=== PATIENT | female | born 1965 | race Caucasian/White ===

== ENCOUNTER 2018-12-01 13:12 | Observation (INO) ==
[2018-12-01 08:25] LABS: Basophils # 0.1 K/mcL (0.0-0.2); Basophils % 2.6 %; Eosinophils % 0.7 %; Hematocrit 34.3 % (35.3-44.9); Hemoglobin 11.5 g/dL (11.5-15.4); Immature Granulocytes % 0.9 % (0-4); Lymphocytes # 0.8 K/mcL (0.6-4.6); Lymphocytes % 18.7 %; Mean Corpuscular HGB Conc 33.5 g/dL (31.6-35.5); Mean Corpuscular Hemoglobin 27.1 pg (28.0-33.3); Mean Corpuscular Volume 80.9 fL (83.0-100.0); Mean Platelet Volume 8.6 fL (9.4-12.4); Monocytes # 0.6 K/mcL (0.0-1.3); Neutrophils # 2.7 K/mcL (1.6-8.9); Platelet Count 234 K/mcL (140-400); Red Blood Count 4.24 M/mcL (3.82-4.97); Red Cell Distribution Width 15.4 % (11.5-14.5); Segmented Neutrophils % 64.1 %; White Blood Count 4.2 K/mcL (4.3-11.1)
[2018-12-01 08:42] LABS: Alanine Aminotransferase 13 Units/L (7-52); Albumin 3.9 g/dL (3.5-5.7); Albumin/Globulin Ratio 1.8 (1.1-2.2); Alkaline Phosphatase 100 Units/L (34-104); Aspartate Amino Transferase 9 Units/L (13-39); BUN/Creatinine Ratio 19 (6-26); Bilirubin,Total 0.5 mg/dL (0.3-1.0); Blood Urea Nitrogen 13 mg/dL (6-20); Calcium 9.4 mg/dL (8.6-10.3); Carbon Dioxide 26 mEq/L (23-29); Chloride 103 mEq/L (98-107); Globulin 2.2 g/dL (2.4-3.5); Glucose 120 mg/dL (70-105); Lactate Dehydrogenase 123 Units/L (140-271); Magnesium 1.8 mg/dL (1.6-2.6); Osmolality,Calculated 289 (280-300); Phosphorous 3.9 mg/dL (2.7-4.5); Potassium 3.5 mEq/L (3.5-5.1); Sodium 139 mEq/L (136-145); Total Protein 6.1 g/dL (6.4-8.9); Uric Acid 5.3 mg/dL (2.3-7.6); eGFR For African Americans > 60 (> 60); eGFR For Non-African Americans > 60 (> 60)
[2018-12-01 08:45] LABS: INR 1.1; Prothrombin Time 12.4 Seconds (9.4-12.1)
[2018-12-01] MEDS: predniSONE 10 MG TABLET PO SCH (09:14)
[2018-12-01] MEDS: 0.9 % Sodium Chloride 1,000 ML IVC SCH ×2 (09:42→17:21)
[~2018-12-01 13:12] MED LIST: *HR* Dextrose 50 % in Water (Syg) 50 ML SYRINGE IVP PRN; *HR* LORazepam 2 MG/ML VIAL IVP PRN; *HR* Promethazine 25 MG/ML VIAL IVP PRN; 0.9 % Sodium Chloride 500 ML IVC SCH; 0.9 % Sodium Chloride 500 ML IVPB ONE; Acetaminophen 325 MG TABLET PO SCH; D5% in Water 1,000 ML IVC PRN; Dexamethasone 10 MG/ML VIAL IVP PRN; Dextrose Gel 15 GM/37.5 ML TUBE PO PRN; Famotidine 20 MG/2 ML VIAL IVP PRN; Fosaprepitant Dimeglumine 150 MG in 0.9 % Sodium Chloride 250 ML IVPB SCH; Naloxone 0.4 MG/ML INJ IVP PRN; Prochlorperazine 10 MG/2 ML VIAL IVP PRN; RITUXIMAB IV SCH; SODIUM CHLORIDE 0.9% IV SCH
[2018-12-01] MEDS ORDERED: DOXORUBICIN HCL IVP SCH (14:00)
[2018-12-01] MEDS ORDERED: VINCRISTINE IVP SCH (14:00)
[2018-12-01] MEDS ORDERED: ETOPOSIDE IVP SCH (14:00)
[2018-12-01] MEDS ORDERED: [UNRECOGNIZED DRUG - OTHER] IVP SCH (14:00)
[2018-12-01] MEDS: Morphine Sulfate ER (12 HR) 15 MG TABLET.ER PO SCH (17:22)
[2018-12-01] MEDS: Ondansetron 4 MG/2 ML VIAL IVP PRN (17:22)
[2018-12-01] MEDS: Insulin LISPRO 300 UNITS/3 ML VIAL SQ SCH ×2 (17:23→20:45)
[2018-12-01 20:17] LABS: Basophils % 0.6 %; Hematocrit 31.5 % (35.3-44.9); Hemoglobin 10.9 g/dL (11.5-15.4); Immature Granulocytes % 1.5 % (0-4); Lymphocytes # 0.2 K/mcL (0.6-4.6); Lymphocytes % 4.9 %; Mean Corpuscular HGB Conc 34.6 g/dL (31.6-35.5); Mean Corpuscular Hemoglobin 27.7 pg (28.0-33.3); Mean Corpuscular Volume 80.2 fL (83.0-100.0); Mean Platelet Volume 8.8 fL (9.4-12.4); Monocytes % 0.6 %; Neutrophils # 4.3 K/mcL (1.6-8.9); Platelet Count 203 K/mcL (140-400); Red Blood Count 3.93 M/mcL (3.82-4.97); Red Cell Distribution Width 15.3 % (11.5-14.5); Segmented Neutrophils % 92.4 %; White Blood Count 4.7 K/mcL (4.3-11.1)
[2018-12-01 20:23] LABS: INR 1.2; Prothrombin Time 13.1 Seconds (9.4-12.1)
[2018-12-01 20:35] LABS: Alanine Aminotransferase 13 Units/L (7-52); Albumin/Globulin Ratio 2.1 (1.1-2.2); Alkaline Phosphatase 99 Units/L (34-104); Aspartate Amino Transferase 10 Units/L (13-39); BUN/Creatinine Ratio 25 (6-26); Bilirubin,Total 0.5 mg/dL (0.3-1.0); Blood Urea Nitrogen 14 mg/dL (6-20); Calcium 9.1 mg/dL (8.6-10.3); Carbon Dioxide 24 mEq/L (23-29); Chloride 106 mEq/L (98-107); Globulin 1.9 g/dL (2.4-3.5); Glucose 194 mg/dL (70-105); Lactate Dehydrogenase 121 Units/L (140-271); Magnesium 1.8 mg/dL (1.6-2.6); Osmolality,Calculated 294 (280-300); Phosphorous 3.4 mg/dL (2.7-4.5); Potassium 4.1 mEq/L (3.5-5.1); Sodium 139 mEq/L (136-145); Total Protein 5.9 g/dL (6.4-8.9); Uric Acid 4.8 mg/dL (2.3-7.6); eGFR For African Americans > 60 (> 60); eGFR For Non-African Americans > 60 (> 60)
[2018-12-02] MEDS ORDERED: *HR* LORazepam 2 MG/ML VIAL IVP PRN
[2018-12-02] MEDS ORDERED: predniSONE 20 MG TABLET PO SCH
[2018-12-02] MEDS ORDERED: Famotidine 20 MG/2 ML VIAL IVP PRN
[2018-12-02] MEDS ORDERED: *HR* Promethazine 25 MG/ML VIAL IVP PRN
[2018-12-02] MEDS ORDERED: Dexamethasone 10 MG/ML VIAL IVP PRN
[2018-12-02] MEDS ORDERED: Prochlorperazine 10 MG/2 ML VIAL IVP PRN
[2018-12-02] MEDS: *HR* OxyCODONE Immed Rel 5 MG TABLET PO PRN (02:47)
[2018-12-02] MEDS: 0.9 % Sodium Chloride 1,000 ML IVC SCH ×3 (02:48→22:00)
[2018-12-02] MEDS: Morphine Sulfate ER (12 HR) 15 MG TABLET.ER PO SCH ×2 (06:36→20:04)
[2018-12-02] MEDS: Acyclovir 200 MG CAPSULE PO SCH ×4 (07:26→21:32)
[2018-12-02] MEDS: *HR* Enoxaparin 40 MG/0.4 ML SYRINGE SQ SCH ×2 (07:26→08:17)
[2018-12-02] MEDS: Fluconazole 100 MG TABLET PO SCH ×2 (07:27→08:16)
[2018-12-02] MEDS: Insulin LISPRO 300 UNITS/3 ML VIAL SQ SCH ×3 (07:28→22:11)
[2018-12-02 08:08] LABS: Basophils % 0.1 %; Hematocrit 30.1 % (35.3-44.9); Hemoglobin 9.8 g/dL (11.5-15.4); Immature Granulocytes % 1.5 % (0-4); Lymphocytes # 0.5 K/mcL (0.6-4.6); Lymphocytes % 5.6 %; Mean Corpuscular HGB Conc 32.6 g/dL (31.6-35.5); Mean Corpuscular Hemoglobin 27.3 pg (28.0-33.3); Mean Corpuscular Volume 83.8 fL (83.0-100.0); Mean Platelet Volume 8.7 fL (9.4-12.4); Monocytes # 0.7 K/mcL (0.0-1.3); Monocytes % 7.6 %; Neutrophils # 7.5 K/mcL (1.6-8.9); Platelet Count 188 K/mcL (140-400); Red Blood Count 3.59 M/mcL (3.82-4.97); Red Cell Distribution Width 15.5 % (11.5-14.5); Segmented Neutrophils % 85.2 %
[2018-12-02 08:14] LABS: INR 1.1; Prothrombin Time 12.5 Seconds (9.4-12.1)
[2018-12-02 08:23] LABS: White Blood Count 8.8 K/mcL (4.3-11.1)
[2018-12-02 08:28] LABS: Alanine Aminotransferase 12 Units/L (7-52); Albumin 3.7 g/dL (3.5-5.7); Albumin/Globulin Ratio 1.9 (1.1-2.2); Alkaline Phosphatase 91 Units/L (34-104); Aspartate Amino Transferase 10 Units/L (13-39); BUN/Creatinine Ratio 27 (6-26); Bilirubin,Total 0.4 mg/dL (0.3-1.0); Blood Urea Nitrogen 14 mg/dL (6-20); Carbon Dioxide 23 mEq/L (23-29); Chloride 106 mEq/L (98-107); Globulin 1.9 g/dL (2.4-3.5); Glucose 119 mg/dL (70-105); Lactate Dehydrogenase 117 Units/L (140-271); Magnesium 1.8 mg/dL (1.6-2.6); Osmolality,Calculated 288 (280-300); Phosphorous 3.2 mg/dL (2.7-4.5); Potassium 3.9 mEq/L (3.5-5.1); Sodium 138 mEq/L (136-145); Total Protein 5.6 g/dL (6.4-8.9); eGFR For African Americans > 60 (> 60); eGFR For Non-African Americans > 60 (> 60)
[2018-12-02] MEDS: predniSONE 10 MG TABLET PO SCH (13:05)
[2018-12-02] MEDS ORDERED: VINCRISTINE IVP SCH (14:00)
[2018-12-02] MEDS ORDERED: ETOPOSIDE IVP SCH (14:00)
[2018-12-02] MEDS ORDERED: [UNRECOGNIZED DRUG - OTHER] IVPB SCH (14:00)
[2018-12-02] MEDS ORDERED: [UNRECOGNIZED DRUG - OTHER] IVP SCH (14:00)
[2018-12-02] MEDS ORDERED: ETOPOSIDE IVPB SCH (14:00)
[2018-12-02] MEDS ORDERED: DOXORUBICIN HCL IVP SCH (14:00)
[2018-12-02] MEDS ORDERED: VINCRISTINE IVPB SCH (14:00)
[2018-12-02] MEDS ORDERED: DOXORUBICIN HCL IVPB SCH (14:00)
[2018-12-02] MEDS: Ondansetron 4 MG/2 ML VIAL IVP PRN (20:04)
[2018-12-02 20:42] LABS: Basophils % 0.4 %; Hematocrit 29.9 % (35.3-44.9); Hemoglobin 10.2 g/dL (11.5-15.4); Immature Granulocytes % 1.1 % (0-4); Lymphocytes # 0.3 K/mcL (0.6-4.6); Lymphocytes % 3.8 %; Mean Corpuscular HGB Conc 34.1 g/dL (31.6-35.5); Mean Corpuscular Volume 82.1 fL (83.0-100.0); Mean Platelet Volume 9.3 fL (9.4-12.4); Monocytes # 0.1 K/mcL (0.0-1.3); Monocytes % 1.3 %; Neutrophils # 6.6 K/mcL (1.6-8.9); Platelet Count 183 K/mcL (140-400); Red Blood Count 3.64 M/mcL (3.82-4.97); Red Cell Distribution Width 15.9 % (11.5-14.5); Segmented Neutrophils % 93.4 %
[2018-12-02 20:54] LABS: INR 1.1; Prothrombin Time 12.2 Seconds (9.4-12.1)
[2018-12-02 20:59] LABS: Alanine Aminotransferase 11 Units/L (7-52); Albumin 3.8 g/dL (3.5-5.7); Albumin/Globulin Ratio 2.2 (1.1-2.2); Alkaline Phosphatase 85 Units/L (34-104); Aspartate Amino Transferase 9 Units/L (13-39); BUN/Creatinine Ratio 23 (6-26); Bilirubin,Total 0.3 mg/dL (0.3-1.0); Blood Urea Nitrogen 14 mg/dL (6-20); Calcium 8.9 mg/dL (8.6-10.3); Carbon Dioxide 23 mEq/L (23-29); Chloride 108 mEq/L (98-107); Globulin 1.7 g/dL (2.4-3.5); Glucose 147 mg/dL (70-105); Lactate Dehydrogenase 112 Units/L (140-271); Magnesium 1.8 mg/dL (1.6-2.6); Osmolality,Calculated 291 (280-300); Phosphorous 3.6 mg/dL (2.7-4.5); Potassium 4.2 mEq/L (3.5-5.1); Sodium 139 mEq/L (136-145); Total Protein 5.5 g/dL (6.4-8.9); Uric Acid 3.6 mg/dL (2.3-7.6); eGFR For African Americans > 60 (> 60); eGFR For Non-African Americans > 60 (> 60)
[2018-12-03] MEDS ORDERED: predniSONE 10 MG TABLET PO SCH
[2018-12-03] MEDS ORDERED: *HR* LORazepam 2 MG/ML VIAL IVP PRN
[2018-12-03] MEDS ORDERED: Dexamethasone 10 MG/ML VIAL IVP PRN
[2018-12-03] MEDS ORDERED: Prochlorperazine 10 MG/2 ML VIAL IVP PRN
[2018-12-03] MEDS ORDERED: *HR* Promethazine 25 MG/ML VIAL IVP PRN
[2018-12-03] MEDS ORDERED: 0.9 % Sodium Chloride 500 ML IVC SCH
[2018-12-03] MEDS ORDERED: Famotidine 20 MG/2 ML VIAL IVP PRN
[2018-12-03] MEDS: *HR* OxyCODONE Immed Rel 5 MG TABLET PO PRN (03:03)
[2018-12-03] MEDS: Morphine Sulfate ER (12 HR) 15 MG TABLET.ER PO SCH ×2 (05:57→17:43)
[2018-12-03 07:50] LABS: Basophils % 0.1 %; Hematocrit 29.6 % (35.3-44.9); Hemoglobin 10.1 g/dL (11.5-15.4); Immature Granulocytes % 0.9 % (0-4); Lymphocytes # 0.4 K/mcL (0.6-4.6); Lymphocytes % 4.6 %; Mean Corpuscular HGB Conc 34.1 g/dL (31.6-35.5); Mean Corpuscular Hemoglobin 28.1 pg (28.0-33.3); Mean Corpuscular Volume 82.2 fL (83.0-100.0); Mean Platelet Volume 8.7 fL (9.4-12.4); Monocytes # 0.5 K/mcL (0.0-1.3); Monocytes % 5.2 %; Neutrophils # 7.7 K/mcL (1.6-8.9); Platelet Count 235 K/mcL (140-400); Red Cell Distribution Width 16.2 % (11.5-14.5); Segmented Neutrophils % 89.2 %; White Blood Count 8.7 K/mcL (4.3-11.1)
[2018-12-03 07:58] LABS: INR 1.1; Prothrombin Time 12.2 Seconds (9.4-12.1)
[2018-12-03 08:11] LABS: Alanine Aminotransferase 14 Units/L (7-52); Albumin 3.8 g/dL (3.5-5.7); Alkaline Phosphatase 83 Units/L (34-104); Aspartate Amino Transferase 12 Units/L (13-39); BUN/Creatinine Ratio 24 (6-26); Bilirubin,Total 0.3 mg/dL (0.3-1.0); Blood Urea Nitrogen 17 mg/dL (6-20); Calcium 8.9 mg/dL (8.6-10.3); Carbon Dioxide 23 mEq/L (23-29); Chloride 107 mEq/L (98-107); Globulin 1.9 g/dL (2.4-3.5); Glucose 125 mg/dL (70-105); Lactate Dehydrogenase 124 Units/L (140-271); Magnesium 1.8 mg/dL (1.6-2.6); Osmolality,Calculated 289 (280-300); Phosphorous 3.7 mg/dL (2.7-4.5); Potassium 3.8 mEq/L (3.5-5.1); Sodium 138 mEq/L (136-145); Total Protein 5.7 g/dL (6.4-8.9); eGFR For African Americans > 60 (> 60); eGFR For Non-African Americans > 60 (> 60)
[2018-12-03] MEDS: Fluconazole 100 MG TABLET PO SCH (08:12)
[2018-12-03] MEDS: *HR* Enoxaparin 40 MG/0.4 ML SYRINGE SQ SCH (08:13)
[2018-12-03] MEDS: Acyclovir 200 MG CAPSULE PO SCH ×2 (08:13→20:57)
[2018-12-03] MEDS: 0.9 % Sodium Chloride 1,000 ML IVC SCH (08:16)
[2018-12-03] MEDS ORDERED: [UNRECOGNIZED DRUG - OTHER] IVPB SCH ×2 (14:00)
[2018-12-03] MEDS ORDERED: DOXORUBICIN HCL IVPB SCH ×2 (14:00)
[2018-12-03] MEDS ORDERED: VINCRISTINE IVPB SCH ×2 (14:00)
[2018-12-03] MEDS ORDERED: ETOPOSIDE IVPB SCH ×2 (14:00)
[2018-12-03] MEDS: Insulin LISPRO 300 UNITS/3 ML VIAL SQ SCH ×3 (17:39→20:59)
[2018-12-03 20:21] LABS: Basophils % 0.2 %; Hematocrit 28.8 % (35.3-44.9); Hemoglobin 9.9 g/dL (11.5-15.4); Immature Granulocytes % 0.8 % (0-4); Lymphocytes # 0.3 K/mcL (0.6-4.6); Lymphocytes % 4.2 %; Mean Corpuscular HGB Conc 34.4 g/dL (31.6-35.5); Mean Corpuscular Volume 81.4 fL (83.0-100.0); Mean Platelet Volume 8.8 fL (9.4-12.4); Monocytes # 0.2 K/mcL (0.0-1.3); Monocytes % 3.2 %; Platelet Count 183 K/mcL (140-400); Red Blood Count 3.54 M/mcL (3.82-4.97); Red Cell Distribution Width 16.2 % (11.5-14.5); Segmented Neutrophils % 91.6 %; White Blood Count 6.5 K/mcL (4.3-11.1)
[2018-12-03 20:23] LABS: Prothrombin Time 11.8 Seconds (9.4-12.1)
[2018-12-03 20:39] LABS: Alanine Aminotransferase 12 Units/L (7-52); Albumin 3.8 g/dL (3.5-5.7); Albumin/Globulin Ratio 2.2 (1.1-2.2); Alkaline Phosphatase 74 Units/L (34-104); Aspartate Amino Transferase 9 Units/L (13-39); BUN/Creatinine Ratio 30 (6-26); Bilirubin,Total 0.3 mg/dL (0.3-1.0); Blood Urea Nitrogen 18 mg/dL (6-20); Calcium 8.7 mg/dL (8.6-10.3); Carbon Dioxide 22 mEq/L (23-29); Chloride 107 mEq/L (98-107); Globulin 1.7 g/dL (2.4-3.5); Glucose 134 mg/dL (70-105); Lactate Dehydrogenase 118 Units/L (140-271); Magnesium 1.8 mg/dL (1.6-2.6); Osmolality,Calculated 292 (280-300); Phosphorous 2.8 mg/dL (2.7-4.5); Potassium 3.7 mEq/L (3.5-5.1); Sodium 139 mEq/L (136-145); Total Protein 5.5 g/dL (6.4-8.9); Uric Acid 2.8 mg/dL (2.3-7.6); eGFR For African Americans > 60 (> 60); eGFR For Non-African Americans > 60 (> 60)
[2018-12-04] MEDS ORDERED: Dexamethasone 10 MG/ML VIAL IVP PRN
[2018-12-04] MEDS ORDERED: 0.9 % Sodium Chloride 500 ML IVC SCH
[2018-12-04] MEDS ORDERED: [UNRECOGNIZED DRUG - OTHER] IVPB SCH
[2018-12-04] MEDS ORDERED: VINCRISTINE IVPB SCH
[2018-12-04] MEDS ORDERED: Famotidine 20 MG/2 ML VIAL IVP PRN
[2018-12-04] MEDS ORDERED: Prochlorperazine 10 MG/2 ML VIAL IVP PRN
[2018-12-04] MEDS ORDERED: *HR* LORazepam 2 MG/ML VIAL IVP PRN
[2018-12-04] MEDS ORDERED: DOXORUBICIN HCL IVPB SCH
[2018-12-04] MEDS ORDERED: *HR* Promethazine 25 MG/ML VIAL IVP PRN
[2018-12-04] MEDS ORDERED: ETOPOSIDE IVPB SCH
[2018-12-04] MEDS ORDERED: predniSONE 10 MG TABLET PO SCH
[2018-12-04] MEDS: 0.9 % Sodium Chloride 1,000 ML IVC SCH ×2 (09:01→19:08)
[2018-12-04] MEDS: Insulin LISPRO 300 UNITS/3 ML VIAL SQ SCH ×5 (09:01→22:13)
[2018-12-04] MEDS: 0.9 % Sodium Chloride 500 ML IVC SCH ×2 (09:03→09:05)
[2018-12-04] MEDS: *HR* Enoxaparin 40 MG/0.4 ML SYRINGE SQ SCH (09:15)
[2018-12-04] MEDS: Fluconazole 100 MG TABLET PO SCH (09:15)
[2018-12-04] MEDS: Acyclovir 200 MG CAPSULE PO SCH ×2 (09:22→22:05)
[2018-12-04 10:12] LABS: Hematocrit 29.1 % (35.3-44.9); Hemoglobin 10.1 g/dL (11.5-15.4); Immature Granulocytes % 0.7 % (0-4); Lymphocytes # 0.3 K/mcL (0.6-4.6); Lymphocytes % 4.9 %; Mean Corpuscular HGB Conc 34.7 g/dL (31.6-35.5); Mean Corpuscular Hemoglobin 27.7 pg (28.0-33.3); Mean Corpuscular Volume 79.7 fL (83.0-100.0); Mean Platelet Volume 8.6 fL (9.4-12.4); Monocytes # 0.3 K/mcL (0.0-1.3); Monocytes % 5.8 %; Neutrophils # 4.8 K/mcL (1.6-8.9); Platelet Count 220 K/mcL (140-400); Red Blood Count 3.65 M/mcL (3.82-4.97); Red Cell Distribution Width 15.9 % (11.5-14.5); Segmented Neutrophils % 88.6 %; White Blood Count 5.4 K/mcL (4.3-11.1)
[2018-12-04 10:22] LABS: INR 1.1; Prothrombin Time 12.3 Seconds (9.4-12.1)
[2018-12-04 10:32] LABS: Alanine Aminotransferase 15 Units/L (7-52); Albumin/Globulin Ratio 2.1 (1.1-2.2); Alkaline Phosphatase 75 Units/L (34-104); Aspartate Amino Transferase 11 Units/L (13-39); BUN/Creatinine Ratio 29 (6-26); Bilirubin,Total 0.5 mg/dL (0.3-1.0); Blood Urea Nitrogen 15 mg/dL (6-20); Calcium 8.9 mg/dL (8.6-10.3); Carbon Dioxide 26 mEq/L (23-29); Chloride 103 mEq/L (98-107); Globulin 1.9 g/dL (2.4-3.5); Glucose 115 mg/dL (70-105); Lactate Dehydrogenase 120 Units/L (140-271); Magnesium 1.9 mg/dL (1.6-2.6); Osmolality,Calculated 286 (280-300); Phosphorous 3.4 mg/dL (2.7-4.5); Potassium 3.3 mEq/L (3.5-5.1); Sodium 137 mEq/L (136-145); Total Protein 5.9 g/dL (6.4-8.9); Uric Acid 2.3 mg/dL (2.3-7.6); eGFR For African Americans > 60 (> 60); eGFR For Non-African Americans > 60 (> 60)
[2018-12-04] MEDS: Morphine Sulfate ER (12 HR) 15 MG TABLET.ER PO SCH ×2 (15:21→17:25)
[2018-12-04 21:38] LABS: Hemoglobin 10.2 g/dL (11.5-15.4); Immature Granulocytes % 0.4 % (0-4); Lymphocytes # 0.2 K/mcL (0.6-4.6); Lymphocytes % 4.4 %; Mean Corpuscular HGB Conc 35.2 g/dL (31.6-35.5); Mean Corpuscular Volume 79.7 fL (83.0-100.0); Mean Platelet Volume 8.8 fL (9.4-12.4); Monocytes # 0.1 K/mcL (0.0-1.3); Monocytes % 1.9 %; Neutrophils # 4.4 K/mcL (1.6-8.9); Platelet Count 207 K/mcL (140-400); Red Blood Count 3.64 M/mcL (3.82-4.97); Segmented Neutrophils % 93.3 %; White Blood Count 4.7 K/mcL (4.3-11.1)
[2018-12-04 21:42] LABS: Prothrombin Time 11.7 Seconds (9.4-12.1)
[2018-12-04 21:57] LABS: Alanine Aminotransferase 13 Units/L (7-52); Albumin/Globulin Ratio 2.2 (1.1-2.2); Alkaline Phosphatase 71 Units/L (34-104); Aspartate Amino Transferase 10 Units/L (13-39); BUN/Creatinine Ratio 27 (6-26); Bilirubin,Total 0.5 mg/dL (0.3-1.0); Blood Urea Nitrogen 16 mg/dL (6-20); Calcium 9.2 mg/dL (8.6-10.3); Carbon Dioxide 28 mEq/L (23-29); Chloride 103 mEq/L (98-107); Globulin 1.8 g/dL (2.4-3.5); Glucose 131 mg/dL (70-105); Lactate Dehydrogenase 126 Units/L (140-271); Magnesium 1.9 mg/dL (1.6-2.6); Osmolality,Calculated 293 (280-300); Phosphorous 3.1 mg/dL (2.7-4.5); Potassium 3.3 mEq/L (3.5-5.1); Sodium 140 mEq/L (136-145); Total Protein 5.8 g/dL (6.4-8.9); Uric Acid 2.1 mg/dL (2.3-7.6); eGFR For African Americans > 60 (> 60); eGFR For Non-African Americans > 60 (> 60)
[2018-12-05] MEDS ORDERED: *HR* LORazepam 2 MG/ML VIAL IVP PRN
[2018-12-05] MEDS ORDERED: Famotidine 20 MG/2 ML VIAL IVP PRN
[2018-12-05] MEDS ORDERED: 0.9 % Sodium Chloride 500 ML IVC SCH
[2018-12-05] MEDS ORDERED: Dexamethasone 10 MG/ML VIAL IVP PRN
[2018-12-05] MEDS ORDERED: CYCLOPHOSPHAMIDE IVPB SCH
[2018-12-05] MEDS ORDERED: SODIUM CHLORIDE 0.9% IVPB SCH
[2018-12-05] MEDS ORDERED: *HR* Promethazine 25 MG/ML VIAL IVP PRN
[2018-12-05] MEDS ORDERED: predniSONE 10 MG TABLET PO SCH
[2018-12-05] MEDS ORDERED: Prochlorperazine 10 MG/2 ML VIAL IVP PRN
[2018-12-05] MEDS: 0.9 % Sodium Chloride 1,000 ML IVC SCH (05:05)
[2018-12-05] MEDS: Morphine Sulfate ER (12 HR) 15 MG TABLET.ER PO SCH (06:05)
[2018-12-05 08:40] LABS: Hematocrit 30.4 % (35.3-44.9); Hemoglobin 10.7 g/dL (11.5-15.4); Immature Granulocytes % 0.7 % (0-4); Lymphocytes # 0.4 K/mcL (0.6-4.6); Mean Corpuscular HGB Conc 35.2 g/dL (31.6-35.5); Mean Corpuscular Volume 79.6 fL (83.0-100.0); Mean Platelet Volume 9.1 fL (9.4-12.4); Monocytes # 0.2 K/mcL (0.0-1.3); Monocytes % 5.5 %; Neutrophils # 3.8 K/mcL (1.6-8.9); Platelet Count 226 K/mcL (140-400); Red Blood Count 3.82 M/mcL (3.82-4.97); Red Cell Distribution Width 15.9 % (11.5-14.5); Segmented Neutrophils % 85.8 %; White Blood Count 4.4 K/mcL (4.3-11.1)
[2018-12-05 08:41] LABS: INR 1.1; Prothrombin Time 12.2 Seconds (9.4-12.1)
[2018-12-05 08:55] LABS: BUN/Creatinine Ratio 29 (6-26); Blood Urea Nitrogen 14 mg/dL (6-20); Carbon Dioxide 29 mEq/L (23-29); Chloride 100 mEq/L (98-107); Potassium 2.9 mEq/L (3.5-5.1); Sodium 138 mEq/L (136-145)
[2018-12-05 08:56] LABS: Alanine Aminotransferase 14 Units/L (7-52); Albumin 4.2 g/dL (3.5-5.7); Albumin/Globulin Ratio 2.3 (1.1-2.2); Alkaline Phosphatase 72 Units/L (34-104); Aspartate Amino Transferase 9 Units/L (13-39); Bilirubin,Total 0.7 mg/dL (0.3-1.0); Calcium 9.4 mg/dL (8.6-10.3); Globulin 1.8 g/dL (2.4-3.5); Glucose 115 mg/dL (70-105); Lactate Dehydrogenase 129 Units/L (140-271); Osmolality,Calculated 287 (280-300); Phosphorous 3.3 mg/dL (2.7-4.5); Uric Acid 1.8 mg/dL (2.3-7.6); eGFR For African Americans > 60 (> 60); eGFR For Non-African Americans > 60 (> 60)
[2018-12-05] MEDS: Fluconazole 100 MG TABLET PO SCH (10:17)
[2018-12-05] MEDS: Acyclovir 200 MG CAPSULE PO SCH (10:17)
[2018-12-05] MEDS: *HR* Enoxaparin 40 MG/0.4 ML SYRINGE SQ SCH (10:18)
[2018-12-05] MEDS ORDERED: Pegfilgrastim 6 MG/0.6 ML Delivery Kit SQ SCH (14:45)
[2018-12-05 16:11] VITALS: BP 127/79
== END 2018-12-05 18:53 | disposition home or self-care (01) ==
LOC: 3ANU
PROVIDERS: ADMIT Internal Medicine; ATTEND Internal Medicine

== ENCOUNTER 2018-12-19 10:27 | Inpatient (IN) ==
[2018-12-22] MEDS ORDERED: RITUXIMAB IV SCH
[2018-12-22] MEDS ORDERED: SODIUM CHLORIDE 0.9% IV SCH
[2018-12-22] MEDS ORDERED: Fosaprepitant Dimeglumine 150 MG in 0.9 % Sodium Chloride 250 ML IVPB SCH
[2018-12-22] MEDS ORDERED: Prochlorperazine 10 MG/2 ML VIAL IVP PRN
[2018-12-22] MEDS ORDERED: 0.9 % Sodium Chloride 500 ML IVC SCH
[2018-12-22] MEDS ORDERED: *HR* LORazepam 2 MG/ML VIAL IVP PRN
[2018-12-22] MEDS ORDERED: Acetaminophen 325 MG TABLET PO ONE
[2018-12-22] MEDS ORDERED: Famotidine 20 MG/2 ML VIAL IVP PRN
[2018-12-22] MEDS ORDERED: Dexamethasone 10 MG/ML VIAL IVP PRN
[2018-12-22] MEDS ORDERED: predniSONE 10 MG TABLET PO SCH
[2018-12-22] MEDS ORDERED: D5% in Water 1,000 ML IVC PRN (08:37)
[2018-12-22] MEDS ORDERED: Dextrose Gel 15 GM/37.5 ML TUBE PO PRN ×2 (08:37)
[2018-12-22] MEDS ORDERED: *HR* Dextrose 50 % in Water (Syg) 50 ML SYRINGE IVP PRN (08:37)
[2018-12-22] MEDS ORDERED: *HR* Promethazine 25 MG/ML VIAL IVP PRN ×2 (08:38)
[2018-12-22] MEDS ORDERED: Ondansetron 4 MG/2 ML VIAL IVP PRN (08:39)
[2018-12-22 09:08] LABS: Basophils # 0.1 K/mcL (0.0-0.2); Basophils % 2.3 %; Eosinophils % 0.3 %; Hematocrit 33.8 % (35.3-44.9); Immature Granulocytes % 0.9 % (0-4); Lymphocytes # 1.1 K/mcL (0.6-4.6); Lymphocytes % 19.2 %; Mean Corpuscular HGB Conc 32.5 g/dL (31.6-35.5); Mean Corpuscular Hemoglobin 28.5 pg (28.0-33.3); Mean Corpuscular Volume 87.6 fL (83.0-100.0); Mean Platelet Volume 8.7 fL (9.4-12.4); Monocytes # 0.6 K/mcL (0.0-1.3); Monocytes % 9.6 %; Neutrophils # 3.9 K/mcL (1.6-8.9); Platelet Count 307 K/mcL (140-400); Red Blood Count 3.86 M/mcL (3.82-4.97); Red Cell Distribution Width 19.9 % (11.5-14.5); Segmented Neutrophils % 67.7 %; White Blood Count 5.7 K/mcL (4.3-11.1)
[2018-12-22] MEDS ORDERED: Naloxone 0.4 MG/ML INJ IVP PRN (09:17)
[2018-12-22 09:26] LABS: Prothrombin Time 11.8 Seconds (9.4-12.1)
[2018-12-22 09:30] LABS: Alanine Aminotransferase 8 Units/L (7-52); Alkaline Phosphatase 61 Units/L (34-104); Aspartate Amino Transferase 9 Units/L (13-39); BUN/Creatinine Ratio 23 (6-26); Bilirubin,Total 0.4 mg/dL (0.3-1.0); Blood Urea Nitrogen 15 mg/dL (6-20); Calcium 9.5 mg/dL (8.6-10.3); Carbon Dioxide 29 mEq/L (23-29); Chloride 102 mEq/L (98-107); Glucose 104 mg/dL (70-105); Lactate Dehydrogenase 140 Units/L (140-271); Magnesium 1.9 mg/dL (1.6-2.6); Osmolality,Calculated 285 (280-300); Phosphorous 4.6 mg/dL (2.7-4.5); Potassium 4.3 mEq/L (3.5-5.1); Sodium 137 mEq/L (136-145); Uric Acid 5.8 mg/dL (2.3-7.6); eGFR For African Americans > 60 (> 60); eGFR For Non-African Americans > 60 (> 60)
[2018-12-22] MEDS: 0.9 % Sodium Chloride 1,000 ML IVC SCH ×2 (11:10→22:07)
[2018-12-22] MEDS ORDERED: [UNRECOGNIZED DRUG - OTHER] IVPB SCH (14:00)
[2018-12-22] MEDS ORDERED: ETOPOSIDE IVPB SCH (14:00)
[2018-12-22] MEDS ORDERED: VINCRISTINE IVPB SCH (14:00)
[2018-12-22] MEDS ORDERED: DOXORUBICIN HCL IVPB SCH (14:00)
[2018-12-22] MEDS: Insulin LISPRO 300 UNITS/3 ML VIAL SQ SCH ×2 (15:25→17:18)
[2018-12-22] MEDS: Morphine Sulfate ER (12 HR) 15 MG TABLET.ER PO SCH (17:18)
[2018-12-22] MEDS: *HR* Heparin 5,000 UNIT/ML VIAL SQ SCH (17:19)
[2018-12-23] MEDS ORDERED: Famotidine 20 MG/2 ML VIAL IVP PRN
[2018-12-23] MEDS ORDERED: predniSONE 10 MG TABLET PO SCH
[2018-12-23] MEDS ORDERED: Prochlorperazine 10 MG/2 ML VIAL IVP PRN
[2018-12-23] MEDS ORDERED: Dexamethasone 10 MG/ML VIAL IVP PRN
[2018-12-23] MEDS ORDERED: *HR* LORazepam 2 MG/ML VIAL IVP PRN
[2018-12-23] MEDS ORDERED: *HR* Promethazine 25 MG/ML VIAL IVP PRN
[2018-12-23 04:58] LABS: Basophils % 0.3 %; Hematocrit 30.4 % (35.3-44.9); Hemoglobin 10.3 g/dL (11.5-15.4); Immature Granulocytes % 1.2 % (0-4); Lymphocytes # 0.4 K/mcL (0.6-4.6); Lymphocytes % 4.8 %; Mean Corpuscular HGB Conc 33.9 g/dL (31.6-35.5); Mean Corpuscular Hemoglobin 28.4 pg (28.0-33.3); Mean Corpuscular Volume 83.7 fL (83.0-100.0); Mean Platelet Volume 8.9 fL (9.4-12.4); Monocytes # 0.5 K/mcL (0.0-1.3); Monocytes % 5.1 %; Neutrophils # 8.2 K/mcL (1.6-8.9); Platelet Count 291 K/mcL (140-400); Red Blood Count 3.63 M/mcL (3.82-4.97); Red Cell Distribution Width 19.4 % (11.5-14.5); Segmented Neutrophils % 88.6 %; White Blood Count 9.2 K/mcL (4.3-11.1)
[2018-12-23 05:09] LABS: INR 1.1; Prothrombin Time 12.3 Seconds (9.4-12.1)
[2018-12-23 05:21] LABS: Alanine Aminotransferase 9 Units/L (7-52); Albumin 3.6 g/dL (3.5-5.7); Alkaline Phosphatase 53 Units/L (34-104); Aspartate Amino Transferase 8 Units/L (13-39); BUN/Creatinine Ratio 26 (6-26); Bilirubin,Total 0.3 mg/dL (0.3-1.0); Blood Urea Nitrogen 15 mg/dL (6-20); Calcium 9.1 mg/dL (8.6-10.3); Carbon Dioxide 23 mEq/L (23-29); Chloride 106 mEq/L (98-107); Globulin 1.8 g/dL (2.4-3.5); Glucose 122 mg/dL (70-105); Magnesium 1.8 mg/dL (1.6-2.6); Osmolality,Calculated 284 (280-300); Phosphorous 3.9 mg/dL (2.7-4.5); Potassium 4.2 mEq/L (3.5-5.1); Sodium 136 mEq/L (136-145); Total Protein 5.4 g/dL (6.4-8.9); Uric Acid 3.6 mg/dL (2.3-7.6); eGFR For African Americans > 60 (> 60); eGFR For Non-African Americans > 60 (> 60)
[2018-12-23] MEDS: Insulin LISPRO 300 UNITS/3 ML VIAL SQ SCH ×4 (06:04→16:58)
[2018-12-23] MEDS: 0.9 % Sodium Chloride 1,000 ML IVC SCH ×2 (06:34→17:36)
[2018-12-23] MEDS: *HR* Heparin 5,000 UNIT/ML VIAL SQ SCH (06:35)
[2018-12-23] MEDS: Morphine Sulfate ER (12 HR) 15 MG TABLET.ER PO SCH ×2 (06:35→17:38)
[2018-12-23] MEDS: Fluconazole 100 MG TABLET PO SCH (09:03)
[2018-12-23] MEDS: Acyclovir 200 MG CAPSULE PO SCH (09:04)
[2018-12-23] MEDS ORDERED: VINCRISTINE IVPB SCH ×2 (13:30)
[2018-12-23] MEDS ORDERED: ETOPOSIDE IVPB SCH ×2 (13:30)
[2018-12-23] MEDS ORDERED: [UNRECOGNIZED DRUG - OTHER] IVPB SCH ×2 (13:30)
[2018-12-23] MEDS ORDERED: DOXORUBICIN HCL IVPB SCH ×2 (13:30)
[2018-12-23 16:27] LABS: Alanine Aminotransferase 8 Units/L (7-52); Albumin 3.6 g/dL (3.5-5.7); Alkaline Phosphatase 50 Units/L (34-104); Aspartate Amino Transferase 9 Units/L (13-39); BUN/Creatinine Ratio 23 (6-26); Bilirubin,Total 0.3 mg/dL (0.3-1.0); Blood Urea Nitrogen 15 mg/dL (6-20); Calcium 8.8 mg/dL (8.6-10.3); Carbon Dioxide 22 mEq/L (23-29); Chloride 107 mEq/L (98-107); Globulin 1.8 g/dL (2.4-3.5); Glucose 126 mg/dL (70-105); Lactate Dehydrogenase 132 Units/L (140-271); Magnesium 1.7 mg/dL (1.6-2.6); Osmolality,Calculated 284 (280-300); Potassium 3.8 mEq/L (3.5-5.1); Sodium 136 mEq/L (136-145); Total Protein 5.4 g/dL (6.4-8.9); Uric Acid 3.4 mg/dL (2.3-7.6); eGFR For African Americans > 60 (> 60); eGFR For Non-African Americans > 60 (> 60)
[2018-12-23 16:37] LABS: Prothrombin Time 11.5 Seconds (9.4-12.1)
[2018-12-24] MEDS ORDERED: *HR* LORazepam 2 MG/ML VIAL IVP PRN
[2018-12-24] MEDS ORDERED: Famotidine 20 MG/2 ML VIAL IVP PRN
[2018-12-24] MEDS ORDERED: predniSONE 10 MG TABLET PO SCH
[2018-12-24] MEDS ORDERED: Prochlorperazine 10 MG/2 ML VIAL IVP PRN
[2018-12-24] MEDS ORDERED: *HR* Promethazine 25 MG/ML VIAL IVP PRN
[2018-12-24] MEDS ORDERED: Dexamethasone 10 MG/ML VIAL IVP PRN
[2018-12-24] MEDS: *HR* OxyCODONE/APAP 5/325 TABLET PO PRN ×2 (02:07→21:04)
[2018-12-24] MEDS: 0.9 % Sodium Chloride 1,000 ML IVC SCH ×2 (02:07→23:28)
[2018-12-24] MEDS: Morphine Sulfate ER (12 HR) 15 MG TABLET.ER PO SCH ×2 (06:18→17:50)
[2018-12-24 07:13] LABS: Prothrombin Time 11.4 Seconds (9.4-12.1)
[2018-12-24 07:26] LABS: Alanine Aminotransferase 9 Units/L (7-52); Albumin 3.8 g/dL (3.5-5.7); Albumin/Globulin Ratio 2.1 (1.1-2.2); Alkaline Phosphatase 52 Units/L (34-104); Aspartate Amino Transferase 10 Units/L (13-39); BUN/Creatinine Ratio 23 (6-26); Bilirubin,Total 0.3 mg/dL (0.3-1.0); Blood Urea Nitrogen 15 mg/dL (6-20); Calcium 9.2 mg/dL (8.6-10.3); Carbon Dioxide 25 mEq/L (23-29); Chloride 105 mEq/L (98-107); Globulin 1.8 g/dL (2.4-3.5); Glucose 110 mg/dL (70-105); Lactate Dehydrogenase 141 Units/L (140-271); Magnesium 1.8 mg/dL (1.6-2.6); Osmolality,Calculated 285 (280-300); Phosphorous 3.9 mg/dL (2.7-4.5); Potassium 3.8 mEq/L (3.5-5.1); Sodium 137 mEq/L (136-145); Total Protein 5.6 g/dL (6.4-8.9); Uric Acid 3.1 mg/dL (2.3-7.6); eGFR For African Americans > 60 (> 60); eGFR For Non-African Americans > 60 (> 60)
[2018-12-24] MEDS ORDERED: [UNRECOGNIZED DRUG - OTHER] IT SCH (08:00)
[2018-12-24] MEDS ORDERED: SODIUM CHLORIDE 0.9% IT SCH (08:00)
[2018-12-24 08:51] LABS: Basophils % 0.1 %; Hematocrit 31.5 % (35.3-44.9); Hemoglobin 10.6 g/dL (11.5-15.4); Lymphocytes # 0.5 K/mcL (0.6-4.6); Lymphocytes % 5.8 %; Mean Corpuscular HGB Conc 33.7 g/dL (31.6-35.5); Mean Corpuscular Volume 86.3 fL (83.0-100.0); Mean Platelet Volume 9.1 fL (9.4-12.4); Monocytes # 0.6 K/mcL (0.0-1.3); Monocytes % 6.9 %; Neutrophils # 7.2 K/mcL (1.6-8.9); Platelet Count 313 K/mcL (140-400); Red Blood Count 3.65 M/mcL (3.82-4.97); Red Cell Distribution Width 19.9 % (11.5-14.5); Segmented Neutrophils % 86.2 %; White Blood Count 8.4 K/mcL (4.3-11.1)
[2018-12-24] MEDS: Insulin LISPRO 300 UNITS/3 ML VIAL SQ SCH ×3 (10:02→17:32)
[2018-12-24] MEDS: Acyclovir 200 MG CAPSULE PO SCH ×2 (10:13→21:04)
[2018-12-24] MEDS: Fluconazole 100 MG TABLET PO SCH (10:13)
[2018-12-24] MEDS ORDERED: VINCRISTINE IVPB SCH (14:30)
[2018-12-24] MEDS ORDERED: [UNRECOGNIZED DRUG - OTHER] IVPB SCH (14:30)
[2018-12-24] MEDS ORDERED: ETOPOSIDE IVPB SCH (14:30)
[2018-12-24] MEDS ORDERED: DOXORUBICIN HCL IVPB SCH (14:30)
[2018-12-24 17:14] LABS: Basophils # 0.1 K/mcL (0.0-0.2); Basophils % 1.3 %; Hematocrit 28.3 % (35.3-44.9); Hemoglobin 9.6 g/dL (11.5-15.4); Immature Granulocytes % 0.7 % (0-4); Lymphocytes % 22.4 %; Mean Corpuscular HGB Conc 33.9 g/dL (31.6-35.5); Mean Corpuscular Hemoglobin 29.1 pg (28.0-33.3); Mean Corpuscular Volume 85.8 fL (83.0-100.0); Mean Platelet Volume 8.8 fL (9.4-12.4); Monocytes # 0.5 K/mcL (0.0-1.3); Monocytes % 11.2 %; Neutrophils # 2.9 K/mcL (1.6-8.9); Platelet Count 237 K/mcL (140-400); Segmented Neutrophils % 64.4 %; White Blood Count 4.6 K/mcL (4.3-11.1)
[2018-12-24 17:25] LABS: INR 1.1
[2018-12-24 17:36] LABS: Alanine Aminotransferase 11 Units/L (7-52); Albumin 3.5 g/dL (3.5-5.7); Albumin/Globulin Ratio 2.3 (1.1-2.2); Alkaline Phosphatase 46 Units/L (34-104); Aspartate Amino Transferase 10 Units/L (13-39); BUN/Creatinine Ratio 22 (6-26); Bilirubin,Total 0.3 mg/dL (0.3-1.0); Blood Urea Nitrogen 14 mg/dL (6-20); Calcium 8.7 mg/dL (8.6-10.3); Carbon Dioxide 29 mEq/L (23-29); Chloride 106 mEq/L (98-107); Globulin 1.5 g/dL (2.4-3.5); Glucose 104 mg/dL (70-105); Lactate Dehydrogenase 119 Units/L (140-271); Magnesium 1.8 mg/dL (1.6-2.6); Osmolality,Calculated 289 (280-300); Phosphorous 4.2 mg/dL (2.7-4.5); Potassium 3.6 mEq/L (3.5-5.1); Sodium 139 mEq/L (136-145); Uric Acid 3.1 mg/dL (2.3-7.6); eGFR For African Americans > 60 (> 60); eGFR For Non-African Americans > 60 (> 60)
[2018-12-24] MEDS: *HR* Heparin 5,000 UNIT/ML VIAL SQ SCH (17:50)
[2018-12-25] MEDS ORDERED: *HR* Promethazine 25 MG/ML VIAL IVP PRN
[2018-12-25] MEDS ORDERED: *HR* LORazepam 2 MG/ML VIAL IVP PRN
[2018-12-25] MEDS ORDERED: Famotidine 20 MG/2 ML VIAL IVP PRN
[2018-12-25] MEDS ORDERED: Prochlorperazine 10 MG/2 ML VIAL IVP PRN
[2018-12-25] MEDS ORDERED: Dexamethasone 10 MG/ML VIAL IVP PRN
[2018-12-25] MEDS: Morphine Sulfate ER (12 HR) 15 MG TABLET.ER PO SCH ×2 (06:21→18:21)
[2018-12-25 06:23] LABS: Prothrombin Time 11.3 Seconds (9.4-12.1)
[2018-12-25] MEDS: *HR* Heparin 5,000 UNIT/ML VIAL SQ SCH ×2 (06:24→18:20)
[2018-12-25 06:46] LABS: Alanine Aminotransferase 20 Units/L (7-52); Albumin 3.7 g/dL (3.5-5.7); Albumin/Globulin Ratio 2.2 (1.1-2.2); Alkaline Phosphatase 50 Units/L (34-104); Aspartate Amino Transferase 16 Units/L (13-39); BUN/Creatinine Ratio 28 (6-26); Bilirubin,Total 0.4 mg/dL (0.3-1.0); Blood Urea Nitrogen 15 mg/dL (6-20); Carbon Dioxide 26 mEq/L (23-29); Chloride 103 mEq/L (98-107); Globulin 1.7 g/dL (2.4-3.5); Glucose 130 mg/dL (70-105); Lactate Dehydrogenase 131 Units/L (140-271); Magnesium 1.8 mg/dL (1.6-2.6); Osmolality,Calculated 289 (280-300); Phosphorous 4.5 mg/dL (2.7-4.5); Potassium 3.9 mEq/L (3.5-5.1); Sodium 138 mEq/L (136-145); Total Protein 5.4 g/dL (6.4-8.9); eGFR For African Americans > 60 (> 60); eGFR For Non-African Americans > 60 (> 60)
[2018-12-25] MEDS: Fluconazole 100 MG TABLET PO SCH (09:45)
[2018-12-25] MEDS: Insulin LISPRO 300 UNITS/3 ML VIAL SQ SCH ×3 (09:45→18:22)
[2018-12-25] MEDS: 0.9 % Sodium Chloride 1,000 ML IVC SCH ×2 (09:45→19:59)
[2018-12-25 10:01] LABS: Basophils % 0.2 %; Hemoglobin 10.1 g/dL (11.5-15.4); Lymphocytes # 0.3 K/mcL (0.6-4.6); Mean Corpuscular HGB Conc 36.1 g/dL (31.6-35.5); Mean Corpuscular Hemoglobin 29.3 pg (28.0-33.3); Mean Corpuscular Volume 81.2 fL (83.0-100.0); Mean Platelet Volume 9.5 fL (9.4-12.4); Monocytes # 0.3 K/mcL (0.0-1.3); Monocytes % 5.4 %; Neutrophils # 4.5 K/mcL (1.6-8.9); Platelet Count 203 K/mcL (140-400); Red Blood Count 3.45 M/mcL (3.82-4.97); Red Cell Distribution Width 19.8 % (11.5-14.5); Segmented Neutrophils % 87.4 %; White Blood Count 5.2 K/mcL (4.3-11.1)
[2018-12-25 10:43] LABS: Anisocytosis 1+ (Not Present)
[2018-12-25] MEDS ORDERED: predniSONE 10 MG TABLET PO SCH (14:30)
[2018-12-25] MEDS ORDERED: [UNRECOGNIZED DRUG - OTHER] IVPB SCH (15:00)
[2018-12-25] MEDS ORDERED: VINCRISTINE IVPB SCH (15:00)
[2018-12-25] MEDS ORDERED: DOXORUBICIN HCL IVPB SCH (15:00)
[2018-12-25] MEDS ORDERED: ETOPOSIDE IVPB SCH (15:00)
[2018-12-25 16:54] LABS: Basophils % 0.2 %; Hematocrit 29.1 % (35.3-44.9); Hemoglobin 9.8 g/dL (11.5-15.4); Immature Granulocytes % 0.8 % (0-4); Lymphocytes # 0.8 K/mcL (0.6-4.6); Lymphocytes % 12.3 %; Mean Corpuscular HGB Conc 33.7 g/dL (31.6-35.5); Mean Corpuscular Hemoglobin 29.2 pg (28.0-33.3); Mean Corpuscular Volume 86.6 fL (83.0-100.0); Monocytes # 0.6 K/mcL (0.0-1.3); Monocytes % 9.2 %; Platelet Count 267 K/mcL (140-400); Red Blood Count 3.36 M/mcL (3.82-4.97); Red Cell Distribution Width 19.7 % (11.5-14.5); Segmented Neutrophils % 77.5 %; White Blood Count 6.5 K/mcL (4.3-11.1)
[2018-12-25 17:03] LABS: Prothrombin Time 11.6 Seconds (9.4-12.1)
[2018-12-25 17:10] LABS: Alanine Aminotransferase 26 Units/L (7-52); Albumin 3.6 g/dL (3.5-5.7); Albumin/Globulin Ratio 2.1 (1.1-2.2); Alkaline Phosphatase 46 Units/L (34-104); Aspartate Amino Transferase 20 Units/L (13-39); BUN/Creatinine Ratio 30 (6-26); Bilirubin,Total 0.4 mg/dL (0.3-1.0); Blood Urea Nitrogen 16 mg/dL (6-20); Carbon Dioxide 27 mEq/L (23-29); Chloride 103 mEq/L (98-107); Globulin 1.7 g/dL (2.4-3.5); Glucose 93 mg/dL (70-105); Lactate Dehydrogenase 152 Units/L (140-271); Magnesium 1.8 mg/dL (1.6-2.6); Osmolality,Calculated 281 (280-300); Phosphorous 3.6 mg/dL (2.7-4.5); Potassium 3.3 mEq/L (3.5-5.1); Sodium 135 mEq/L (136-145); Total Protein 5.3 g/dL (6.4-8.9); eGFR For African Americans > 60 (> 60); eGFR For Non-African Americans > 60 (> 60)
[2018-12-25] MEDS: Acyclovir 200 MG CAPSULE PO SCH (20:00)
[2018-12-26] MEDS ORDERED: 0.9 % Sodium Chloride 500 ML IVC SCH
[2018-12-26] MEDS ORDERED: *HR* LORazepam 2 MG/ML VIAL IVP PRN
[2018-12-26] MEDS ORDERED: Dexamethasone 10 MG/ML VIAL IVP PRN
[2018-12-26] MEDS ORDERED: Famotidine 20 MG/2 ML VIAL IVP PRN
[2018-12-26] MEDS ORDERED: Prochlorperazine 10 MG/2 ML VIAL IVP PRN
[2018-12-26] MEDS ORDERED: *HR* Promethazine 25 MG/ML VIAL IVP PRN
[2018-12-26] MEDS: *HR* OxyCODONE/APAP 5/325 TABLET PO PRN (03:24)
[2018-12-26 05:55] LABS: Alanine Aminotransferase 49 Units/L (7-52); Albumin 3.5 g/dL (3.5-5.7); Albumin/Globulin Ratio 2.2 (1.1-2.2); Alkaline Phosphatase 45 Units/L (34-104); Aspartate Amino Transferase 29 Units/L (13-39); BUN/Creatinine Ratio 33 (6-26); Bilirubin,Total 0.5 mg/dL (0.3-1.0); Blood Urea Nitrogen 16 mg/dL (6-20); Calcium 8.9 mg/dL (8.6-10.3); Carbon Dioxide 29 mEq/L (23-29); Chloride 102 mEq/L (98-107); Globulin 1.6 g/dL (2.4-3.5); Glucose 131 mg/dL (70-105); Lactate Dehydrogenase 127 Units/L (140-271); Magnesium 1.9 mg/dL (1.6-2.6); Osmolality,Calculated 285 (280-300); Potassium 3.4 mEq/L (3.5-5.1); Sodium 136 mEq/L (136-145); Total Protein 5.1 g/dL (6.4-8.9); Uric Acid 2.8 mg/dL (2.3-7.6); eGFR For African Americans > 60 (> 60); eGFR For Non-African Americans > 60 (> 60)
[2018-12-26] MEDS: 0.9 % Sodium Chloride 1,000 ML IVC SCH ×3 (06:35→16:24)
[2018-12-26] MEDS: Morphine Sulfate ER (12 HR) 15 MG TABLET.ER PO SCH ×2 (06:36→18:12)
[2018-12-26] MEDS: *HR* Heparin 5,000 UNIT/ML VIAL SQ SCH ×2 (06:40→18:12)
[2018-12-26] MEDS: Insulin LISPRO 300 UNITS/3 ML VIAL SQ SCH ×5 (08:09→18:12)
[2018-12-26] MEDS: 0.9 % Sodium Chloride 500 ML IVC SCH ×3 (08:10)
[2018-12-26] MEDS: Acyclovir 200 MG CAPSULE PO SCH ×2 (08:11→10:54)
[2018-12-26 08:59] LABS: Prothrombin Time 11.7 Seconds (9.4-12.1)
[2018-12-26 10:00] VITALS: BP 159/78
[2018-12-26] MEDS: Fluconazole 100 MG TABLET PO SCH (10:55)
[2018-12-26] MEDS ORDERED: predniSONE 10 MG TABLET PO SCH (13:30)
[2018-12-26] MEDS ORDERED: CYCLOPHOSPHAMIDE IVPB SCH (16:00)
[2018-12-26] MEDS ORDERED: SODIUM CHLORIDE 0.9% IVPB SCH (16:00)
== END 2018-12-26 20:04 | disposition home or self-care (01) | DRG 847 ==
LOC: SUATTDRO 12-22 07:27 → 3ANU 12-22 07:27 → PREOBSVTOIN 12-22 13:00
PROVIDERS: ADMIT Student in an Organized Health Care Education/Training Program; ATTEND Internal Medicine

== ENCOUNTER 2019-01-07 15:23 | Inpatient (IN) ==
[2019-01-12] MEDS ORDERED: Famotidine 20 MG/2 ML VIAL IVP PRN
[2019-01-12] MEDS ORDERED: Prochlorperazine 10 MG/2 ML VIAL IVP PRN
[2019-01-12] MEDS ORDERED: predniSONE 10 MG TABLET PO SCH
[2019-01-12] MEDS ORDERED: *HR* LORazepam 2 MG/ML VIAL IVP PRN
[2019-01-12] MEDS ORDERED: SODIUM CHLORIDE 0.9% IV SCH
[2019-01-12] MEDS ORDERED: Fosaprepitant Dimeglumine 150 MG in 0.9 % Sodium Chloride 250 ML IVPB SCH
[2019-01-12] MEDS ORDERED: Acetaminophen 325 MG TABLET PO ONE
[2019-01-12] MEDS ORDERED: RITUXIMAB IV SCH
[2019-01-12] MEDS ORDERED: *HR* Promethazine 25 MG/ML VIAL IVP PRN
[2019-01-12] MEDS ORDERED: Dexamethasone 10 MG/ML VIAL IVP PRN
[2019-01-12 09:39] LABS: Basophils # 0.1 K/mcL (0.0-0.2); Basophils % 2.2 %; Eosinophils % 0.4 %; Hematocrit 30.5 % (35.3-44.9); Hemoglobin 10.7 g/dL (11.5-15.4); Immature Granulocytes % 0.9 % (0-4); Lymphocytes # 0.8 K/mcL (0.6-4.6); Lymphocytes % 14.4 %; Mean Corpuscular HGB Conc 35.1 g/dL (31.6-35.5); Mean Corpuscular Hemoglobin 30.8 pg (28.0-33.3); Mean Corpuscular Volume 87.9 fL (83.0-100.0); Mean Platelet Volume 8.6 fL (9.4-12.4); Monocytes # 0.6 K/mcL (0.0-1.3); Monocytes % 10.5 %; Platelet Count 312 K/mcL (140-400); Red Blood Count 3.47 M/mcL (3.82-4.97); Red Cell Distribution Width 21.2 % (11.5-14.5); Segmented Neutrophils % 71.6 %; White Blood Count 5.6 K/mcL (4.3-11.1)
[2019-01-12] MEDS ORDERED: Naloxone 0.4 MG/ML INJ IVP PRN (09:44)
[2019-01-12 10:02] LABS: BUN/Creatinine Ratio 25 (6-26); Blood Urea Nitrogen 15 mg/dL (6-20); Carbon Dioxide 26 mEq/L (23-29); Chloride 103 mEq/L (98-107); Glucose 96 mg/dL (70-105); Osmolality,Calculated 287 (280-300); Potassium 3.9 mEq/L (3.5-5.1); Sodium 138 mEq/L (136-145); eGFR For African Americans > 60 (> 60); eGFR For Non-African Americans > 60 (> 60)
[2019-01-12] MEDS ORDERED: *HR* OxyCODONE/APAP 5/325 TABLET PO PRN (10:36)
[2019-01-12] MEDS ORDERED: Morphine Sulfate Immed Rel 15 MG TABLET PO PRN (10:39)
[2019-01-12] MEDS ORDERED: 0.9 % Sodium Chloride 1,000 ML ONE (10:55)
[2019-01-12 11:08] LABS: Basophils # 0.1 K/mcL (0.0-0.2); Eosinophils % 0.3 %; Hematocrit 32.6 % (35.3-44.9); Hemoglobin 11.4 g/dL (11.5-15.4); Immature Granulocytes % 0.8 % (0-4); Immature Platelets 1.3 % (1.1-6.1); Lymphocytes % 17.4 %; Mean Corpuscular Hemoglobin 30.9 pg (28.0-33.3); Mean Corpuscular Volume 88.3 fL (83.0-100.0); Mean Platelet Volume 8.6 fL (9.4-12.4); Monocytes # 0.6 K/mcL (0.0-1.3); Monocytes % 10.5 %; Neutrophils # 4.1 K/mcL (1.6-8.9); Platelet Count 316 K/mcL (140-400); Red Blood Count 3.69 M/mcL (3.82-4.97); Red Cell Distribution Width 21.2 % (11.5-14.5); White Blood Count 5.9 K/mcL (4.3-11.1)
[2019-01-12] MEDS ORDERED: Dextrose Gel 15 GM/37.5 ML TUBE PO PRN ×2 (11:12)
[2019-01-12] MEDS ORDERED: *HR* Dextrose 50 % in Water (Syg) 50 ML SYRINGE IVP PRN (11:12)
[2019-01-12] MEDS ORDERED: D5% in Water 1,000 ML IVC PRN (11:12)
[2019-01-12 11:28] LABS: Alanine Aminotransferase 9 Units/L (7-52); Albumin 3.9 g/dL (3.5-5.7); Albumin/Globulin Ratio 2.3 (1.1-2.2); Alkaline Phosphatase 64 Units/L (34-104); Aspartate Amino Transferase 9 Units/L (13-39); BUN/Creatinine Ratio 23 (6-26); Bilirubin,Total 0.4 mg/dL (0.3-1.0); Blood Urea Nitrogen 15 mg/dL (6-20); Calcium 9.3 mg/dL (8.6-10.3); Carbon Dioxide 26 mEq/L (23-29); Chloride 102 mEq/L (98-107); Globulin 1.7 g/dL (2.4-3.5); Glucose 98 mg/dL (70-105); Lactate Dehydrogenase 138 Units/L (140-271); Osmolality,Calculated 285 (280-300); Phosphorous 4.7 mg/dL (2.7-4.5); Potassium 3.9 mEq/L (3.5-5.1); Sodium 137 mEq/L (136-145); Total Protein 5.6 g/dL (6.4-8.9); Uric Acid 4.7 mg/dL (2.3-7.6); eGFR For African Americans > 60 (> 60); eGFR For Non-African Americans > 60 (> 60)
[2019-01-12 11:48] LABS: Prothrombin Time 11.9 Seconds (9.4-12.1)
[2019-01-12] MEDS: 0.9 % Sodium Chloride 500 ML IVC SCH (13:31)
[2019-01-12] MEDS ORDERED: [UNRECOGNIZED DRUG - OTHER] IVPB SCH (14:00)
[2019-01-12] MEDS ORDERED: VINCRISTINE IVPB SCH (14:00)
[2019-01-12] MEDS ORDERED: ETOPOSIDE IVPB SCH (14:00)
[2019-01-12] MEDS ORDERED: DOXORUBICIN HCL IVPB SCH (14:00)
[2019-01-12] MEDS: 0.9 % Sodium Chloride 1,000 ML IVC SCH (21:11)
[2019-01-13] MEDS ORDERED: Famotidine 20 MG/2 ML VIAL IVP PRN
[2019-01-13] MEDS ORDERED: *HR* LORazepam 2 MG/ML VIAL IVP PRN
[2019-01-13] MEDS ORDERED: predniSONE 10 MG TABLET PO SCH
[2019-01-13] MEDS ORDERED: *HR* Promethazine 25 MG/ML VIAL IVP PRN
[2019-01-13] MEDS ORDERED: Prochlorperazine 10 MG/2 ML VIAL IVP PRN
[2019-01-13] MEDS ORDERED: Dexamethasone 10 MG/ML VIAL IVP PRN
[2019-01-13 06:53] LABS: Basophils % 0.4 %; Hematocrit 28.2 % (35.3-44.9); Immature Granulocytes % 0.7 % (0-4); Lymphocytes # 0.5 K/mcL (0.6-4.6); Lymphocytes % 7.2 %; Mean Corpuscular Hemoglobin 29.8 pg (28.0-33.3); Mean Corpuscular Volume 87.6 fL (83.0-100.0); Mean Platelet Volume 8.6 fL (9.4-12.4); Monocytes # 0.5 K/mcL (0.0-1.3); Monocytes % 6.6 %; Neutrophils # 5.9 K/mcL (1.6-8.9); Platelet Count 239 K/mcL (140-400); Red Blood Count 3.22 M/mcL (3.82-4.97); Red Cell Distribution Width 20.3 % (11.5-14.5); Segmented Neutrophils % 85.1 %; White Blood Count 6.9 K/mcL (4.3-11.1)
[2019-01-13 07:00] LABS: Hemoglobin 9.6 g/dL (11.5-15.4)
[2019-01-13 07:13] LABS: BUN/Creatinine Ratio 24 (6-26); Blood Urea Nitrogen 13 mg/dL (6-20); Calcium 9.1 mg/dL (8.6-10.3); Carbon Dioxide 23 mEq/L (23-29); Chloride 106 mEq/L (98-107); Glucose 105 mg/dL (70-105); Magnesium 1.8 mg/dL (1.6-2.6); Osmolality,Calculated 286 (280-300); Sodium 138 mEq/L (136-145); eGFR For African Americans > 60 (> 60); eGFR For Non-African Americans > 60 (> 60)
[2019-01-13] MEDS: 0.9 % Sodium Chloride 1,000 ML IVC SCH (07:39)
[2019-01-13] MEDS ORDERED: [UNRECOGNIZED DRUG - OTHER] IVPB SCH (14:00)
[2019-01-13] MEDS ORDERED: VINCRISTINE IVPB SCH (14:00)
[2019-01-13] MEDS ORDERED: DOXORUBICIN HCL IVPB SCH (14:00)
[2019-01-13] MEDS ORDERED: ETOPOSIDE IVPB SCH (14:00)
[2019-01-13] MEDS ORDERED: Morphine Sulfate Immed Rel 15 MG TABLET PO PRN (14:35)
[2019-01-13] MEDS ORDERED: *HR* OxyCODONE/APAP 5/325 TABLET PO PRN (14:36)
[2019-01-13] MEDS: Insulin LISPRO 300 UNITS/3 ML VIAL SQ SCH ×2 (18:31→18:33)
[2019-01-13] MEDS: *HR* Heparin 5,000 UNIT/ML VIAL SQ SCH (18:33)
[2019-01-14] MEDS ORDERED: *HR* Promethazine 25 MG/ML VIAL IVP PRN
[2019-01-14] MEDS ORDERED: 0.9 % Sodium Chloride 500 ML IVC SCH
[2019-01-14] MEDS ORDERED: SODIUM CHLORIDE 0.9% IT SCH
[2019-01-14] MEDS ORDERED: Famotidine 20 MG/2 ML VIAL IVP PRN
[2019-01-14] MEDS ORDERED: Dexamethasone 10 MG/ML VIAL IVP PRN
[2019-01-14] MEDS ORDERED: [UNRECOGNIZED DRUG - OTHER] IT SCH
[2019-01-14] MEDS ORDERED: Prochlorperazine 10 MG/2 ML VIAL IVP PRN
[2019-01-14] MEDS ORDERED: *HR* LORazepam 2 MG/ML VIAL IVP PRN
[2019-01-14] MEDS ORDERED: predniSONE 10 MG TABLET PO SCH
[2019-01-14] MEDS: 0.9 % Sodium Chloride 1,000 ML IVC SCH ×4 (05:18→23:11)
[2019-01-14 05:33] LABS: Hematocrit 27.2 % (35.3-44.9); Hemoglobin 9.7 g/dL (11.5-15.4); Immature Granulocytes % 0.7 % (0-4); Lymphocytes # 0.3 K/mcL (0.6-4.6); Lymphocytes % 4.4 %; Mean Corpuscular HGB Conc 35.7 g/dL (31.6-35.5); Mean Corpuscular Volume 86.9 fL (83.0-100.0); Mean Platelet Volume 8.9 fL (9.4-12.4); Monocytes # 0.3 K/mcL (0.0-1.3); Monocytes % 4.8 %; Neutrophils # 5.1 K/mcL (1.6-8.9); Platelet Count 229 K/mcL (140-400); Red Blood Count 3.13 M/mcL (3.82-4.97); Red Cell Distribution Width 20.5 % (11.5-14.5); Segmented Neutrophils % 90.1 %; White Blood Count 5.6 K/mcL (4.3-11.1)
[2019-01-14 05:56] LABS: BUN/Creatinine Ratio 29 (6-26); Blood Urea Nitrogen 18 mg/dL (6-20); Calcium 8.9 mg/dL (8.6-10.3); Carbon Dioxide 23 mEq/L (23-29); Chloride 104 mEq/L (98-107); Glucose 122 mg/dL (70-105); Osmolality,Calculated 287 (280-300); Sodium 137 mEq/L (136-145); eGFR For African Americans > 60 (> 60); eGFR For Non-African Americans > 60 (> 60)
[2019-01-14] MEDS: Acyclovir 200 MG CAPSULE PO SCH ×3 (11:17→19:56)
[2019-01-14] MEDS: Fluconazole 100 MG TABLET PO SCH ×2 (11:17→15:14)
[2019-01-14] MEDS: [UNRECOGNIZED DRUG - OTHER] IVPB SCH (13:29)
[2019-01-14] MEDS: VINCRISTINE IVPB SCH (13:29)
[2019-01-14] MEDS: ETOPOSIDE IVPB SCH (13:29)
[2019-01-14] MEDS: DOXORUBICIN HCL IVPB SCH (13:29)
[2019-01-14] MEDS: 0.9 % Sodium Chloride 500 ML IVC SCH ×3 (15:12→19:24)
[2019-01-14] MEDS: Insulin LISPRO 300 UNITS/3 ML VIAL SQ SCH ×6 (19:44→23:11)
[2019-01-14] MEDS: *HR* Heparin 5,000 UNIT/ML VIAL SQ SCH ×2 (19:50→23:07)
[2019-01-15] MEDS ORDERED: 0.9 % Sodium Chloride 500 ML IVC SCH
[2019-01-15] MEDS ORDERED: Prochlorperazine 10 MG/2 ML VIAL IVP PRN
[2019-01-15] MEDS ORDERED: Famotidine 20 MG/2 ML VIAL IVP PRN
[2019-01-15] MEDS ORDERED: Dexamethasone 10 MG/ML VIAL IVP PRN
[2019-01-15] MEDS ORDERED: *HR* Promethazine 25 MG/ML VIAL IVP PRN
[2019-01-15] MEDS ORDERED: *HR* LORazepam 2 MG/ML VIAL IVP PRN
[2019-01-15] MEDS: Ondansetron 4 MG/2 ML VIAL IVP PRN (03:04)
[2019-01-15] MEDS: 0.9 % Sodium Chloride 1,000 ML IVC SCH ×2 (03:09→12:19)
[2019-01-15] MEDS: *HR* Heparin 5,000 UNIT/ML VIAL SQ SCH ×2 (05:20→18:02)
[2019-01-15] MEDS: Fluconazole 100 MG TABLET PO SCH (08:48)
[2019-01-15] MEDS: Acyclovir 200 MG CAPSULE PO SCH ×2 (08:48→19:47)
[2019-01-15 09:23] LABS: Hematocrit 27.2 % (35.3-44.9); Hemoglobin 9.2 g/dL (11.5-15.4); Mean Corpuscular HGB Conc 33.8 g/dL (31.6-35.5); Mean Corpuscular Hemoglobin 30.7 pg (28.0-33.3); Mean Corpuscular Volume 90.7 fL (83.0-100.0); Platelet Count 224 K/mcL (140-400); Red Cell Distribution Width 20.5 % (11.5-14.5); White Blood Count 4.3 K/mcL (4.3-11.1)
[2019-01-15 09:31] LABS: BUN/Creatinine Ratio 24 (6-26); Blood Urea Nitrogen 13 mg/dL (6-20); Calcium 9.1 mg/dL (8.6-10.3); Carbon Dioxide 29 mEq/L (23-29); Chloride 102 mEq/L (98-107); Glucose 87 mg/dL (70-105); Osmolality,Calculated 285 (280-300); Potassium 3.2 mEq/L (3.5-5.1); Sodium 138 mEq/L (136-145); eGFR For African Americans > 60 (> 60); eGFR For Non-African Americans > 60 (> 60)
[2019-01-15] MEDS: Insulin LISPRO 300 UNITS/3 ML VIAL SQ SCH ×4 (10:50→22:39)
[2019-01-15] MEDS ORDERED: predniSONE 10 MG TABLET PO SCH (12:00)
[2019-01-15] MEDS ORDERED: DOXORUBICIN HCL IVPB SCH (12:00)
[2019-01-15] MEDS ORDERED: ETOPOSIDE IVPB SCH (12:00)
[2019-01-15] MEDS ORDERED: [UNRECOGNIZED DRUG - OTHER] IVPB SCH (12:00)
[2019-01-15] MEDS ORDERED: VINCRISTINE IVPB SCH (12:00)
[2019-01-15] MEDS: [UNRECOGNIZED DRUG - OTHER] IVPB SCH (12:15)
[2019-01-15] MEDS: VINCRISTINE IVPB SCH (12:15)
[2019-01-15] MEDS: ETOPOSIDE IVPB SCH (12:15)
[2019-01-15] MEDS: DOXORUBICIN HCL IVPB SCH (12:15)
[2019-01-16] MEDS ORDERED: 0.9 % Sodium Chloride 500 ML IVC SCH
[2019-01-16] MEDS ORDERED: Dexamethasone 10 MG/ML VIAL IVP PRN
[2019-01-16] MEDS ORDERED: Famotidine 20 MG/2 ML VIAL IVP PRN
[2019-01-16] MEDS ORDERED: *HR* Promethazine 25 MG/ML VIAL IVP PRN
[2019-01-16] MEDS ORDERED: Prochlorperazine 10 MG/2 ML VIAL IVP PRN
[2019-01-16] MEDS ORDERED: *HR* LORazepam 2 MG/ML VIAL IVP PRN
[2019-01-16] MEDS: 0.9 % Sodium Chloride 1,000 ML IVC SCH ×2 (00:28→12:03)
[2019-01-16] MEDS: Ondansetron 4 MG/2 ML VIAL IVP PRN (03:36)
[2019-01-16] MEDS: *HR* Heparin 5,000 UNIT/ML VIAL SQ SCH (05:45)
[2019-01-16 06:26] LABS: Hematocrit 28.9 % (35.3-44.9); Hemoglobin 10.2 g/dL (11.5-15.4); Mean Corpuscular HGB Conc 35.3 g/dL (31.6-35.5); Mean Corpuscular Hemoglobin 30.4 pg (28.0-33.3); Mean Platelet Volume 8.6 fL (9.4-12.4); Platelet Count 247 K/mcL (140-400); Red Blood Count 3.36 M/mcL (3.82-4.97); Red Cell Distribution Width 19.7 % (11.5-14.5); White Blood Count 4.5 K/mcL (4.3-11.1)
[2019-01-16 08:43] LABS: BUN/Creatinine Ratio 27 (6-26); Blood Urea Nitrogen 14 mg/dL (6-20); Calcium 9.2 mg/dL (8.6-10.3); Carbon Dioxide 29 mEq/L (23-29); Chloride 99 mEq/L (98-107); Glucose 92 mg/dL (70-105); Magnesium 1.8 mg/dL (1.6-2.6); Osmolality,Calculated 284 (280-300); Potassium 3.3 mEq/L (3.5-5.1); Sodium 137 mEq/L (136-145); eGFR For African Americans > 60 (> 60); eGFR For Non-African Americans > 60 (> 60)
[2019-01-16] MEDS: Fluconazole 100 MG TABLET PO SCH (09:41)
[2019-01-16] MEDS: Acyclovir 200 MG CAPSULE PO SCH (09:41)
[2019-01-16] MEDS ORDERED: SODIUM CHLORIDE 0.9% IVPB ONE (11:30)
[2019-01-16] MEDS ORDERED: CYCLOPHOSPHAMIDE IVPB ONE (11:30)
[2019-01-16 11:55] VITALS: BP 126/81
[2019-01-16] MEDS ORDERED: predniSONE 10 MG TABLET PO SCH (12:00)
[2019-01-16] MEDS ORDERED: CYCLOPHOSPHAMIDE IVPB SCH (12:30)
[2019-01-16] MEDS ORDERED: SODIUM CHLORIDE 0.9% IVPB SCH (12:30)
== END 2019-01-16 14:49 | disposition home or self-care (01) | DRG 847 ==
LOC: 3ANU 01-12 07:24
PROVIDERS: ADMIT Internal Medicine; ATTEND Internal Medicine
PROC: IRLUMPX (2019-01-14 08:00)

== ENCOUNTER 2019-02-02 07:50 | Inpatient (IN) ==
[~2019-02-02 07:50] MED LIST changes: -*HR* Dextrose 50 % in Water (Syg) 50 ML SYRINGE IVP PRN; -0.9 % Sodium Chloride 500 ML IVC SCH; -0.9 % Sodium Chloride 500 ML IVPB ONE; -Acetaminophen 325 MG TABLET PO SCH; -D5% in Water 1,000 ML IVC PRN; -Dextrose Gel 15 GM/37.5 ML TUBE PO PRN; -Naloxone 0.4 MG/ML INJ IVP PRN; +SODIUM CHLORIDE 0.9% IT SCH; +[UNRECOGNIZED DRUG - OTHER] IT SCH
[2019-02-02] MEDS ORDERED: D5% in Water 1,000 ML IVC PRN (09:52)
[2019-02-02] MEDS ORDERED: *HR* Dextrose 50 % in Water (Syg) 50 ML SYRINGE IVP PRN (09:52)
[2019-02-02] MEDS ORDERED: Dextrose Gel 15 GM/37.5 ML TUBE PO PRN ×2 (09:52)
[2019-02-02] MEDS ORDERED: *HR* OxyCODONE/APAP 5/325 TABLET PO PRN (09:54)
[2019-02-02] MEDS ORDERED: Ondansetron 4 MG/2 ML VIAL IVP PRN (09:55)
[2019-02-02] MEDS ORDERED: *HR* Promethazine 25 MG/ML VIAL IVP PRN (09:57)
[2019-02-02] MEDS ORDERED: predniSONE 20 MG TABLET PO SCH (09:58)
[2019-02-02] MEDS ORDERED: Naloxone 0.4 MG/ML INJ IVP PRN (10:03)
[2019-02-02] MEDS ORDERED: Acetaminophen 325 MG TABLET PO SCH (11:30)
[2019-02-02] MEDS: 0.9 % Sodium Chloride 1,000 ML IVC SCH ×2 (12:03→20:44)
[2019-02-02] MEDS: predniSONE 10 MG TABLET PO SCH (12:04)
[2019-02-02] MEDS: 0.9 % Sodium Chloride 500 ML IVC SCH (14:14)
[2019-02-02] MEDS ORDERED: [UNRECOGNIZED DRUG - OTHER] IVPB SCH (15:00)
[2019-02-02] MEDS ORDERED: ETOPOSIDE IVPB SCH (15:00)
[2019-02-02] MEDS ORDERED: DOXORUBICIN HCL IVPB SCH (15:00)
[2019-02-02] MEDS ORDERED: VINCRISTINE IVPB SCH (15:00)
[2019-02-02] MEDS ORDERED: Morphine Sulfate ER (12 HR) 15 MG TABLET.ER PO SCH (18:00)
[2019-02-02] MEDS: Insulin LISPRO 300 UNITS/3 ML VIAL SQ SCH ×3 (19:27→20:56)
[2019-02-02] MEDS: Acetaminophen 325 MG TABLET PO SCH ×2 (19:31→21:00)
[2019-02-02] MEDS ORDERED: Morphine Sulfate ER (12 HR) 15 MG TABLET.ER PO PRN (20:42)
[2019-02-03 05:59] LABS: Prothrombin Time 11.5 Seconds (9.4-12.1)
[2019-02-03 06:04] LABS: Basophils % 0.3 %; Hematocrit 27.6 % (35.3-44.9); Hemoglobin 9.1 g/dL (11.5-15.4); Immature Granulocytes % 0.7 % (0-4); Lymphocytes # 0.6 K/mcL (0.6-4.6); Lymphocytes % 8.2 %; Mean Corpuscular Hemoglobin 31.9 pg (28.0-33.3); Mean Corpuscular Volume 96.8 fL (83.0-100.0); Mean Platelet Volume 8.9 fL (9.4-12.4); Monocytes # 0.4 K/mcL (0.0-1.3); Monocytes % 5.7 %; Neutrophils # 6.5 K/mcL (1.6-8.9); Platelet Count 281 K/mcL (140-400); Red Blood Count 2.85 M/mcL (3.82-4.97); Red Cell Distribution Width 18.3 % (11.5-14.5); Segmented Neutrophils % 85.1 %; White Blood Count 7.6 K/mcL (4.3-11.1)
[2019-02-03 06:19] LABS: Alanine Aminotransferase 9 Units/L (7-52); Albumin 3.6 g/dL (3.5-5.7); Albumin/Globulin Ratio 2.1 (1.1-2.2); Alkaline Phosphatase 65 Units/L (34-104); Aspartate Amino Transferase 9 Units/L (13-39); BUN/Creatinine Ratio 27 (6-26); Bilirubin,Total 0.3 mg/dL (0.3-1.0); Blood Urea Nitrogen 15 mg/dL (6-20); Calcium 9.4 mg/dL (8.6-10.3); Carbon Dioxide 26 mEq/L (23-29); Chloride 103 mEq/L (98-107); Globulin 1.7 g/dL (2.4-3.5); Glucose 103 mg/dL (70-105); Lactate Dehydrogenase 132 Units/L (140-271); Magnesium 1.9 mg/dL (1.6-2.6); Osmolality,Calculated 289 (280-300); Phosphorous 3.7 mg/dL (2.7-4.5); Potassium 4.1 mEq/L (3.5-5.1); Sodium 139 mEq/L (136-145); Total Protein 5.3 g/dL (6.4-8.9); Uric Acid 4.1 mg/dL (2.3-7.6); eGFR For African Americans > 60 (> 60); eGFR For Non-African Americans > 60 (> 60)
[2019-02-03] MEDS: 0.9 % Sodium Chloride 1,000 ML IVC SCH ×2 (06:43→15:59)
[2019-02-03] MEDS ORDERED: *HR* Enoxaparin 40 MG/0.4 ML SYRINGE SQ SCH ×2 (07:00)
[2019-02-03] MEDS: 0.9 % Sodium Chloride 500 ML IVC SCH ×2 (07:24→16:01)
[2019-02-03] MEDS: Acyclovir 200 MG CAPSULE PO SCH ×2 (09:47→20:53)
[2019-02-03] MEDS: Fluconazole 100 MG TABLET PO SCH (09:47)
[2019-02-03] MEDS: Insulin LISPRO 300 UNITS/3 ML VIAL SQ SCH ×4 (09:48→20:54)
[2019-02-03] MEDS ORDERED: *HR* Enoxaparin 40 MG/0.4 ML SYRINGE SQ ONE (10:17)
[2019-02-03] MEDS: Pantoprazole 40 MG VIAL IVP SCH (11:57)
[2019-02-03] MEDS: predniSONE 10 MG TABLET PO SCH (11:59)
[2019-02-03] MEDS ORDERED: DOXORUBICIN HCL IVPB SCH (15:00)
[2019-02-03] MEDS ORDERED: VINCRISTINE IVPB SCH (15:00)
[2019-02-03] MEDS ORDERED: ETOPOSIDE IVPB SCH (15:00)
[2019-02-03] MEDS ORDERED: [UNRECOGNIZED DRUG - OTHER] IVPB SCH (15:00)
[2019-02-04] MEDS: 0.9 % Sodium Chloride 1,000 ML IVC SCH ×3 (02:31→21:59)
[2019-02-04 07:28] LABS: Basophils % 0.5 %; Hematocrit 25.5 % (35.3-44.9); Hemoglobin 8.4 g/dL (11.5-15.4); Immature Granulocytes % 0.5 % (0-4); Lymphocytes # 0.7 K/mcL (0.6-4.6); Lymphocytes % 11.3 %; Mean Corpuscular HGB Conc 32.9 g/dL (31.6-35.5); Mean Corpuscular Hemoglobin 32.1 pg (28.0-33.3); Mean Corpuscular Volume 97.3 fL (83.0-100.0); Mean Platelet Volume 8.9 fL (9.4-12.4); Monocytes # 0.6 K/mcL (0.0-1.3); Monocytes % 9.9 %; Neutrophils # 4.6 K/mcL (1.6-8.9); Platelet Count 200 K/mcL (140-400); Prothrombin Time 11.4 Seconds (9.4-12.1); Red Blood Count 2.62 M/mcL (3.82-4.97); Red Cell Distribution Width 18.1 % (11.5-14.5); Segmented Neutrophils % 77.8 %; White Blood Count 5.9 K/mcL (4.3-11.1)
[2019-02-04 07:44] LABS: Alanine Aminotransferase 11 Units/L (7-52); Albumin 3.3 g/dL (3.5-5.7); Albumin/Globulin Ratio 1.9 (1.1-2.2); Alkaline Phosphatase 55 Units/L (34-104); Aspartate Amino Transferase 10 Units/L (13-39); BUN/Creatinine Ratio 30 (6-26); Bilirubin,Total 0.2 mg/dL (0.3-1.0); Blood Urea Nitrogen 17 mg/dL (6-20); Calcium 9.1 mg/dL (8.6-10.3); Carbon Dioxide 26 mEq/L (23-29); Chloride 105 mEq/L (98-107); Globulin 1.7 g/dL (2.4-3.5); Glucose 91 mg/dL (70-105); Lactate Dehydrogenase 124 Units/L (140-271); Magnesium 1.8 mg/dL (1.6-2.6); Osmolality,Calculated 291 (280-300); Phosphorous 3.7 mg/dL (2.7-4.5); Potassium 3.7 mEq/L (3.5-5.1); Sodium 140 mEq/L (136-145); Uric Acid 3.7 mg/dL (2.3-7.6); eGFR For African Americans > 60 (> 60); eGFR For Non-African Americans > 60 (> 60)
[2019-02-04] MEDS: Acyclovir 200 MG CAPSULE PO SCH ×2 (10:19→20:23)
[2019-02-04] MEDS: Fluconazole 100 MG TABLET PO SCH (10:19)
[2019-02-04] MEDS: Insulin LISPRO 300 UNITS/3 ML VIAL SQ SCH ×4 (10:25→21:00)
[2019-02-04] MEDS: predniSONE 10 MG TABLET PO SCH (12:39)
[2019-02-04] MEDS: Pantoprazole 40 MG VIAL IVP SCH (12:39)
[2019-02-04] MEDS ORDERED: [UNRECOGNIZED DRUG - OTHER] IVPB SCH (15:00)
[2019-02-04] MEDS ORDERED: ETOPOSIDE IVPB SCH (15:00)
[2019-02-04] MEDS ORDERED: DOXORUBICIN HCL IVPB SCH (15:00)
[2019-02-04] MEDS ORDERED: VINCRISTINE IVPB SCH (15:00)
[2019-02-04] MEDS: 0.9 % Sodium Chloride 500 ML IVC SCH (15:18)
[2019-02-04 16:51] LABS: Bilirubin,Urine Negative (Negative); Blood,Urine Negative (Negative); Clarity,Urine Clear (Clear); Color,Urine Yellow (Yellow); Glucose,Urine (UA) Normal (Normal); Ketones,Urine Negative (Negative); Leukocyte Esterase,Urine Moderate (Negative); Nitrite,Urine Negative (Negative); PH,Urine 5.5 pH Units (5.0-8.0); Protein,Urine Negative (Neg-Trace); Specific Gravity,Urine 1.024 (1.010-1.025); Urobilinogen,Urine Normal (Normal)
[2019-02-04 16:53] LABS: Bacteria,Urine None Seen per hpf (None-Few); Hyaline Casts,Urine None Seen per lpf (None-Few); RBC,Urine 0-3 per hpf (0-3); Squamous Epithelial Cell,Urine Many per lpf (None-Few); WBC,Urine 50-100 per hpf (0-3)
[2019-02-05] MEDS ORDERED: SODIUM CHLORIDE 0.9% IT SCH
[2019-02-05] MEDS ORDERED: [UNRECOGNIZED DRUG - OTHER] IT SCH
[2019-02-05 05:13] LABS: Basophils % 0.4 %; Hematocrit 26.5 % (35.3-44.9); Hemoglobin 9.2 g/dL (11.5-15.4); Immature Granulocytes % 0.4 % (0-4); Lymphocytes # 0.6 K/mcL (0.6-4.6); Lymphocytes % 12.1 %; Mean Corpuscular HGB Conc 34.7 g/dL (31.6-35.5); Mean Corpuscular Hemoglobin 31.9 pg (28.0-33.3); Mean Platelet Volume 8.7 fL (9.4-12.4); Monocytes # 0.4 K/mcL (0.0-1.3); Monocytes % 8.1 %; Neutrophils # 3.6 K/mcL (1.6-8.9); Platelet Count 229 K/mcL (140-400); Red Blood Count 2.88 M/mcL (3.82-4.97); Red Cell Distribution Width 17.8 % (11.5-14.5); White Blood Count 4.6 K/mcL (4.3-11.1)
[2019-02-05 05:18] LABS: Prothrombin Time 10.8 Seconds (9.4-12.1)
[2019-02-05 05:35] LABS: Alanine Aminotransferase 14 Units/L (7-52); Albumin 3.7 g/dL (3.5-5.7); Albumin/Globulin Ratio 1.9 (1.1-2.2); Alkaline Phosphatase 58 Units/L (34-104); Aspartate Amino Transferase 13 Units/L (13-39); BUN/Creatinine Ratio 26 (6-26); Bilirubin,Total 0.4 mg/dL (0.3-1.0); Blood Urea Nitrogen 14 mg/dL (6-20); Calcium 9.5 mg/dL (8.6-10.3); Carbon Dioxide 30 mEq/L (23-29); Chloride 102 mEq/L (98-107); Globulin 1.9 g/dL (2.4-3.5); Glucose 94 mg/dL (70-105); Lactate Dehydrogenase 130 Units/L (140-271); Magnesium 1.9 mg/dL (1.6-2.6); Osmolality,Calculated 292 (280-300); Phosphorous 3.7 mg/dL (2.7-4.5); Potassium 3.7 mEq/L (3.5-5.1); Sodium 141 mEq/L (136-145); Total Protein 5.6 g/dL (6.4-8.9); Uric Acid 3.4 mg/dL (2.3-7.6); eGFR For African Americans > 60 (> 60); eGFR For Non-African Americans > 60 (> 60)
[2019-02-05] MEDS: 0.9 % Sodium Chloride 500 ML IVC SCH (07:38)
[2019-02-05] MEDS: 0.9 % Sodium Chloride 1,000 ML IVC SCH ×2 (07:44→16:50)
[2019-02-05] MEDS: Insulin LISPRO 300 UNITS/3 ML VIAL SQ SCH ×4 (07:44→20:22)
[2019-02-05] MEDS: Pantoprazole 40 MG VIAL IVP SCH (07:47)
[2019-02-05] MEDS: Fluconazole 100 MG TABLET PO SCH (07:47)
[2019-02-05] MEDS: Acyclovir 200 MG CAPSULE PO SCH ×2 (07:48→19:43)
[2019-02-05] MEDS: predniSONE 10 MG TABLET PO SCH (11:58)
[2019-02-05] MEDS ORDERED: [UNRECOGNIZED DRUG - OTHER] IVPB SCH (15:00)
[2019-02-05] MEDS ORDERED: DOXORUBICIN HCL IVPB SCH (15:00)
[2019-02-05] MEDS ORDERED: VINCRISTINE IVPB SCH (15:00)
[2019-02-05] MEDS ORDERED: ETOPOSIDE IVPB SCH (15:00)
[2019-02-06] MEDS: 0.9 % Sodium Chloride 1,000 ML IVC SCH (03:05)
[2019-02-06] MEDS: 0.9 % Sodium Chloride 500 ML IVC SCH (04:00)
[2019-02-06 05:41] LABS: Prothrombin Time 11.7 Seconds (9.4-12.1)
[2019-02-06 05:42] LABS: Basophils % 0.3 %; Hematocrit 25.2 % (35.3-44.9); Hemoglobin 8.6 g/dL (11.5-15.4); Immature Granulocytes % 0.3 % (0-4); Lymphocytes # 0.6 K/mcL (0.6-4.6); Mean Corpuscular HGB Conc 34.1 g/dL (31.6-35.5); Mean Corpuscular Hemoglobin 32.1 pg (28.0-33.3); Mean Platelet Volume 8.6 fL (9.4-12.4); Monocytes # 0.2 K/mcL (0.0-1.3); Monocytes % 7.1 %; Neutrophils # 2.5 K/mcL (1.6-8.9); Platelet Count 204 K/mcL (140-400); Red Blood Count 2.68 M/mcL (3.82-4.97); Red Cell Distribution Width 17.2 % (11.5-14.5); Segmented Neutrophils % 75.3 %; White Blood Count 3.4 K/mcL (4.3-11.1)
[2019-02-06 05:56] LABS: Alanine Aminotransferase 29 Units/L (7-52); Albumin 3.5 g/dL (3.5-5.7); Albumin/Globulin Ratio 1.9 (1.1-2.2); Alkaline Phosphatase 54 Units/L (34-104); Aspartate Amino Transferase 19 Units/L (13-39); BUN/Creatinine Ratio 28 (6-26); Bilirubin,Total 0.4 mg/dL (0.3-1.0); Blood Urea Nitrogen 15 mg/dL (6-20); Calcium 9.4 mg/dL (8.6-10.3); Carbon Dioxide 30 mEq/L (23-29); Chloride 102 mEq/L (98-107); Globulin 1.8 g/dL (2.4-3.5); Glucose 93 mg/dL (70-105); Lactate Dehydrogenase 129 Units/L (140-271); Osmolality,Calculated 293 (280-300); Potassium 3.5 mEq/L (3.5-5.1); Sodium 141 mEq/L (136-145); Total Protein 5.3 g/dL (6.4-8.9); Uric Acid 3.6 mg/dL (2.3-7.6); eGFR For African Americans > 60 (> 60); eGFR For Non-African Americans > 60 (> 60)
[2019-02-06] MEDS ORDERED: *HR* Enoxaparin 40 MG/0.4 ML SYRINGE SQ SCH (06:00)
[2019-02-06] MEDS: Pantoprazole 40 MG VIAL IVP SCH (07:25)
[2019-02-06] MEDS: Acyclovir 200 MG CAPSULE PO SCH (07:28)
[2019-02-06] MEDS: Insulin LISPRO 300 UNITS/3 ML VIAL SQ SCH ×2 (07:28→11:50)
[2019-02-06] MEDS: Fluconazole 100 MG TABLET PO SCH (07:32)
[2019-02-06 08:00] VITALS: BP 146/80
[2019-02-06] MEDS: predniSONE 10 MG TABLET PO SCH (11:42)
[2019-02-06] MEDS ORDERED: SODIUM CHLORIDE 0.9% IVPB SCH (12:00)
[2019-02-06] MEDS ORDERED: CYCLOPHOSPHAMIDE IVPB SCH (12:00)
== END 2019-02-06 14:58 | disposition home or self-care (01) | DRG 847 ==
LOC: SUATTDRO 08:50 → 3ANU 08:50
PROVIDERS: ADMIT Internal Medicine; ATTEND Internal Medicine
PROC: IRLUMPX (2019-02-05 12:00)

== ENCOUNTER 2019-02-23 12:16 | Inpatient (IN) ==
[~2019-02-23 12:16] MED LIST changes: +DOXORUBICIN HCL IVPB SCH; +ETOPOSIDE IVPB SCH; -Fosaprepitant Dimeglumine 150 MG in 0.9 % Sodium Chloride 250 ML IVPB SCH; -RITUXIMAB IV SCH; -SODIUM CHLORIDE 0.9% IT SCH; -SODIUM CHLORIDE 0.9% IV SCH; +VINCRISTINE IVPB SCH; -[UNRECOGNIZED DRUG - OTHER] IT SCH; +[UNRECOGNIZED DRUG - OTHER] IVPB SCH
[2019-02-23] MEDS ORDERED: *HR* Promethazine 25 MG/ML VIAL IVP PRN (13:55)
[2019-02-23] MEDS ORDERED: *HR* HYDROcodone/Acet 5/325 mg TABLET PO PRN (13:55)
[2019-02-23] MEDS ORDERED: Naloxone 0.4 MG/ML INJ IVP PRN (13:55)
[2019-02-23] MEDS: 0.9 % Sodium Chloride 500 ML IVC SCH (14:37)
[2019-02-23] MEDS ORDERED: *HR* OxyCODONE Immed Rel 5 MG TABLET PO PRN (14:41)
[2019-02-24] MEDS ORDERED: *HR* Promethazine 25 MG/ML VIAL IVP PRN
[2019-02-24] MEDS ORDERED: Dexamethasone 10 MG/ML VIAL IVP PRN
[2019-02-24] MEDS ORDERED: Famotidine 20 MG/2 ML VIAL IVP PRN
[2019-02-24] MEDS ORDERED: predniSONE 10 MG TABLET PO SCH
[2019-02-24] MEDS ORDERED: Prochlorperazine 10 MG/2 ML VIAL IVP PRN
[2019-02-24] MEDS ORDERED: *HR* LORazepam 2 MG/ML VIAL IVP PRN
[2019-02-24 06:56] LABS: Basophils % 0.3 %; Hemoglobin 9.3 g/dL (11.5-15.4); Immature Granulocytes % 0.8 % (0-4); Lymphocytes # 0.6 K/mcL (0.6-4.6); Lymphocytes % 8.1 %; Mean Corpuscular HGB Conc 34.4 g/dL (31.6-35.5); Mean Corpuscular Hemoglobin 33.1 pg (28.0-33.3); Mean Corpuscular Volume 96.1 fL (83.0-100.0); Mean Platelet Volume 8.4 fL (9.4-12.4); Monocytes # 0.6 K/mcL (0.0-1.3); Monocytes % 7.8 %; Platelet Count 235 K/mcL (140-400); Red Blood Count 2.81 M/mcL (3.82-4.97); Red Cell Distribution Width 16.1 % (11.5-14.5); White Blood Count 7.2 K/mcL (4.3-11.1)
[2019-02-24 07:15] LABS: BUN/Creatinine Ratio 27 (6-26); Blood Urea Nitrogen 17 mg/dL (6-20); Calcium 9.4 mg/dL (8.6-10.3); Carbon Dioxide 29 mEq/L (23-29); Chloride 105 mEq/L (98-107); Glucose 97 mg/dL (70-105); Magnesium 1.9 mg/dL (1.6-2.6); Osmolality,Calculated 291 (280-300); Potassium 4.2 mEq/L (3.5-5.1); Sodium 140 mEq/L (136-145); eGFR For African Americans > 60 (> 60); eGFR For Non-African Americans > 60 (> 60)
[2019-02-24] MEDS: *HR* Enoxaparin 40 MG/0.4 ML SYRINGE SQ SCH (11:18)
[2019-02-24] MEDS: 0.9 % Sodium Chloride 500 ML IVC SCH (11:19)
[2019-02-24] MEDS ORDERED: VINCRISTINE IVPB SCH (14:00)
[2019-02-24] MEDS ORDERED: [UNRECOGNIZED DRUG - OTHER] IVPB SCH (14:00)
[2019-02-24] MEDS ORDERED: ETOPOSIDE IVPB SCH (14:00)
[2019-02-24] MEDS ORDERED: DOXORUBICIN HCL IVPB SCH (14:00)
[2019-02-24] MEDS: Acyclovir 200 MG CAPSULE PO SCH (21:15)
[2019-02-25] MEDS ORDERED: predniSONE 10 MG TABLET PO SCH
[2019-02-25] MEDS ORDERED: *HR* Promethazine 25 MG/ML VIAL IVP PRN
[2019-02-25] MEDS ORDERED: Famotidine 20 MG/2 ML VIAL IVP PRN
[2019-02-25] MEDS ORDERED: Dexamethasone 10 MG/ML VIAL IVP PRN
[2019-02-25] MEDS ORDERED: 0.9 % Sodium Chloride 500 ML IVC SCH
[2019-02-25] MEDS ORDERED: *HR* LORazepam 2 MG/ML VIAL IVP PRN
[2019-02-25] MEDS ORDERED: Prochlorperazine 10 MG/2 ML VIAL IVP PRN
[2019-02-25] MEDS: *HR* Enoxaparin 40 MG/0.4 ML SYRINGE SQ SCH (05:48)
[2019-02-25] MEDS: Fluconazole 100 MG TABLET PO SCH (08:00)
[2019-02-25] MEDS: Acyclovir 200 MG CAPSULE PO SCH ×2 (08:00→20:07)
[2019-02-25] MEDS: 0.9 % Sodium Chloride 500 ML IVC SCH ×3 (08:01→16:09)
[2019-02-25] MEDS ORDERED: predniSONE 20 MG TABLET PO SCH (13:15)
[2019-02-25] MEDS ORDERED: ETOPOSIDE IVPB SCH (14:00)
[2019-02-25] MEDS ORDERED: [UNRECOGNIZED DRUG - OTHER] IVPB SCH (14:00)
[2019-02-25] MEDS ORDERED: DOXORUBICIN HCL IVPB SCH (14:00)
[2019-02-25] MEDS ORDERED: VINCRISTINE IVPB SCH (14:00)
[2019-02-25 14:28] LABS: Basophils # 0.1 K/mcL (0.0-0.2); Basophils % 1.3 %; Eosinophils % 0.2 %; Hematocrit 27.7 % (35.3-44.9); Hemoglobin 9.7 g/dL (11.5-15.4); Immature Granulocytes % 0.7 % (0-4); Lymphocytes % 18.7 %; Mean Corpuscular Hemoglobin 33.6 pg (28.0-33.3); Mean Corpuscular Volume 95.8 fL (83.0-100.0); Mean Platelet Volume 8.3 fL (9.4-12.4); Monocytes # 0.6 K/mcL (0.0-1.3); Monocytes % 10.4 %; Neutrophils # 3.8 K/mcL (1.6-8.9); Platelet Count 259 K/mcL (140-400); Red Blood Count 2.89 M/mcL (3.82-4.97); Red Cell Distribution Width 16.2 % (11.5-14.5); Segmented Neutrophils % 68.7 %; White Blood Count 5.5 K/mcL (4.3-11.1)
[2019-02-25 15:03] LABS: BUN/Creatinine Ratio 30 (6-26); Blood Urea Nitrogen 19 mg/dL (6-20); Calcium 8.9 mg/dL (8.6-10.3); Carbon Dioxide 29 mEq/L (23-29); Chloride 104 mEq/L (98-107); Glucose 98 mg/dL (70-105); Magnesium 1.8 mg/dL (1.6-2.6); Osmolality,Calculated 294 (280-300); Phosphorous 3.6 mg/dL (2.7-4.5); Sodium 141 mEq/L (136-145); Uric Acid 4.6 mg/dL (2.3-7.6); eGFR For African Americans > 60 (> 60); eGFR For Non-African Americans > 60 (> 60)
[2019-02-25] MEDS: Potassium Chloride Elixir 20 MEQ/15 ML UDC PO SCH ×2 (17:13→20:06)
[2019-02-26] MEDS ORDERED: *HR* Promethazine 25 MG/ML VIAL IVP PRN
[2019-02-26] MEDS ORDERED: 0.9 % Sodium Chloride 500 ML IVC SCH
[2019-02-26] MEDS ORDERED: Prochlorperazine 10 MG/2 ML VIAL IVP PRN
[2019-02-26] MEDS ORDERED: Dexamethasone 10 MG/ML VIAL IVP PRN
[2019-02-26] MEDS ORDERED: Famotidine 20 MG/2 ML VIAL IVP PRN
[2019-02-26] MEDS ORDERED: *HR* LORazepam 2 MG/ML VIAL IVP PRN
[2019-02-26] MEDS: 0.9 % Sodium Chloride 500 ML IVC SCH ×2 (03:11→23:46)
[2019-02-26] MEDS: *HR* Enoxaparin 40 MG/0.4 ML SYRINGE SQ SCH (06:26)
[2019-02-26 07:04] LABS: Basophils % 0.4 %; Hematocrit 27.4 % (35.3-44.9); Hemoglobin 9.3 g/dL (11.5-15.4); Immature Granulocytes % 0.4 % (0-4); Lymphocytes # 0.5 K/mcL (0.6-4.6); Mean Corpuscular HGB Conc 33.9 g/dL (31.6-35.5); Mean Corpuscular Hemoglobin 33.3 pg (28.0-33.3); Mean Corpuscular Volume 98.2 fL (83.0-100.0); Mean Platelet Volume 8.5 fL (9.4-12.4); Monocytes # 0.4 K/mcL (0.0-1.3); Monocytes % 7.2 %; Neutrophils # 4.1 K/mcL (1.6-8.9); Platelet Count 225 K/mcL (140-400); Red Blood Count 2.79 M/mcL (3.82-4.97); Red Cell Distribution Width 15.8 % (11.5-14.5)
[2019-02-26] MEDS ORDERED: Ondansetron ODT 4 MG TAB.RAPDIS SL PRN (07:54)
[2019-02-26 08:01] LABS: BUN/Creatinine Ratio 31 (6-26); Blood Urea Nitrogen 16 mg/dL (6-20); Calcium 9.2 mg/dL (8.6-10.3); Carbon Dioxide 29 mEq/L (23-29); Chloride 102 mEq/L (98-107); Glucose 90 mg/dL (70-105); Magnesium 1.9 mg/dL (1.6-2.6); Osmolality,Calculated 289 (280-300); Potassium 3.9 mEq/L (3.5-5.1); Sodium 139 mEq/L (136-145); Uric Acid 4.6 mg/dL (2.3-7.6); eGFR For African Americans > 60 (> 60); eGFR For Non-African Americans > 60 (> 60)
[2019-02-26] MEDS: Fluconazole 100 MG TABLET PO SCH (10:26)
[2019-02-26] MEDS: Acyclovir 200 MG CAPSULE PO SCH ×2 (10:26→20:13)
[2019-02-26] MEDS ORDERED: predniSONE 10 MG TABLET PO SCH (12:00)
[2019-02-26] MEDS ORDERED: DOXORUBICIN HCL IVPB SCH (12:30)
[2019-02-26] MEDS ORDERED: [UNRECOGNIZED DRUG - OTHER] IVPB SCH (12:30)
[2019-02-26] MEDS ORDERED: ETOPOSIDE IVPB SCH (12:30)
[2019-02-26] MEDS ORDERED: VINCRISTINE IVPB SCH (12:30)
[2019-02-27] MEDS ORDERED: 0.9 % Sodium Chloride 500 ML IVC SCH
[2019-02-27] MEDS ORDERED: *HR* LORazepam 2 MG/ML VIAL IVP PRN
[2019-02-27] MEDS ORDERED: Dexamethasone 10 MG/ML VIAL IVP PRN
[2019-02-27] MEDS ORDERED: *HR* Promethazine 25 MG/ML VIAL IVP PRN
[2019-02-27] MEDS ORDERED: Prochlorperazine 10 MG/2 ML VIAL IVP PRN
[2019-02-27] MEDS ORDERED: Famotidine 20 MG/2 ML VIAL IVP PRN
[2019-02-27] MEDS: *HR* Enoxaparin 40 MG/0.4 ML SYRINGE SQ SCH (05:38)
[2019-02-27] MEDS: Acyclovir 200 MG CAPSULE PO SCH (07:56)
[2019-02-27] MEDS: Fluconazole 100 MG TABLET PO SCH (07:56)
[2019-02-27 09:01] LABS: Basophils % 0.5 %; Hematocrit 25.7 % (35.3-44.9); Hemoglobin 9.1 g/dL (11.5-15.4); Immature Granulocytes % 0.8 % (0-4); Lymphocytes # 0.6 K/mcL (0.6-4.6); Lymphocytes % 16.1 %; Mean Corpuscular HGB Conc 35.4 g/dL (31.6-35.5); Mean Corpuscular Hemoglobin 33.1 pg (28.0-33.3); Mean Corpuscular Volume 93.5 fL (83.0-100.0); Mean Platelet Volume 8.3 fL (9.4-12.4); Monocytes # 0.3 K/mcL (0.0-1.3); Monocytes % 7.4 %; Neutrophils # 2.9 K/mcL (1.6-8.9); Platelet Count 204 K/mcL (140-400); Red Blood Count 2.75 M/mcL (3.82-4.97); Red Cell Distribution Width 15.2 % (11.5-14.5); Segmented Neutrophils % 75.2 %; White Blood Count 3.8 K/mcL (4.3-11.1)
[2019-02-27 09:22] LABS: BUN/Creatinine Ratio 30 (6-26); Blood Urea Nitrogen 16 mg/dL (6-20); Carbon Dioxide 32 mEq/L (23-29); Chloride 99 mEq/L (98-107); Glucose 86 mg/dL (70-105); Osmolality,Calculated 284 (280-300); Phosphorous 3.8 mg/dL (2.7-4.5); Potassium 3.3 mEq/L (3.5-5.1); Sodium 137 mEq/L (136-145); Uric Acid 4.5 mg/dL (2.3-7.6); eGFR For African Americans > 60 (> 60); eGFR For Non-African Americans > 60 (> 60)
[2019-02-27] MEDS ORDERED: predniSONE 10 MG TABLET PO SCH (10:30)
[2019-02-27] MEDS ORDERED: SODIUM CHLORIDE 0.9% IVPB SCH (11:00)
[2019-02-27] MEDS ORDERED: CYCLOPHOSPHAMIDE IVPB SCH (11:00)
[2019-02-27 12:05] VITALS: BP 183/72
== END 2019-02-27 14:16 | disposition home or self-care (01) | DRG 847 ==
LOC: SUATTDRO 13:15 → 3ANU 13:15
PROVIDERS: ADMIT Internal Medicine; ATTEND Internal Medicine